=== PATIENT | male | born 1965 | race Two or more races ===

== ENCOUNTER 2020-10-12 13:19 | Outpatient (REF) | payer OTHER, SELFPAY | END 2020-10-12 13:20 | disposition home or self-care (01) | LOC: HO.LAB 13:19 | PROVIDERS: PCP Internal Medicine; Visit Provider Internal Medicine | DX: Z20.828 Contact with and (suspected) exposure to other viral communicable diseases (principal) | CPT/HCPCS: C9803; U0003 ==

== ENCOUNTER 2020-11-14 12:16 | Outpatient (REF) | payer MEDICAID, SELFPAY | END 2020-11-14 12:17 | disposition home or self-care (01) | LOC: HO.LAB 12:16 | PROVIDERS: PCP Internal Medicine; Visit Provider Internal Medicine | DX: Z20.822 Contact with and (suspected) exposure to COVID-19 (principal) | CPT/HCPCS: 36415; C9803; U0003 ==

== ENCOUNTER 2021-03-15 12:41 | Outpatient (REF) | payer MEDICAID, SELFPAY ==
--- NOTE | ~2021-03-15 | XR_ITS ---
EXAMINATION: XR HIP, LEFT CLINICAL INFORMATION: Left hip pain. COMPARISON: None. TECHNIQUE: 2 views of the left hip. FINDINGS: The left hip joint space is maintained normal. There is mild left alicia-acetabular spurring but no bony erosive changes or loose bodies. There is soft tissue ossification lateral to the greater trochanter, likely calcific bursitis. No fracture, lytic or sclerotic process seen. XR/XR hip LT min 2V IMPRESSION: Likely calcific bursitis adjacent to the greater trochanter. Mild periarticular spurring left hip joint. No acute fracture or lytic process.
== END 2021-03-15 12:42 | disposition home or self-care (01) ==
LOC: HO.HMGCX 12:41
PROVIDERS: PCP Internal Medicine; Visit Provider Internal Medicine
DX: M25.552 Pain in left hip (principal)
CPT/HCPCS: 73502

== ENCOUNTER 2021-05-05 22:11 | Emergency (ER) | payer MEDICAID, SELFPAY ==
--- NOTE | ~2021-05-05 | XR_ITS ---
EXAMINATION: XR TOES, RIGHT CLINICAL INFORMATION: Right great toe pain COMPARISON: None TECHNIQUE: 3 views of the right toes were obtained. FINDINGS: Lucency is seen through the shaft of the first digit distal phalanx. There is no fracture line visualized. The lucency is likely associated with the configuration of the tuft. Mild degenerative change at the first metatarsophalangeal joint with small osteophytes present. No osseous erosion. The soft tissues appear unremarkable. XR/XR toe RT min 2V IMPRESSION: No acute fracture is seen. Mild degenerative change of the first metatarsophalangeal joint.
--- NOTE | 2021-05-05 22:19 | PC.NURSE ---
awaiting rat farmer services to triage
[2021-05-05 22:28] VITALS: BP 157/77; PULSE 75; RESP 18; TEMP 37.2; O2SAT 100; BMI 29.0
--- NOTE | 2021-05-05 23:11 | ED.LOWEXIN ---
HPI - Extremity Injury (Lower) General Chief Complaint: Extremity Injury, Lower Stated Complaint: Toe injury Time Seen by Provider: 05/05/21 23:11 Source: patient Mode of arrival: ambulatory History of Present Illness HPI Narrative: 56-year-old diabetic, blind male who presents after having injured his right great toe when moving a refrigerator yesterday. As per daughter who is at bedside her father dropped a corner of the refrigerator on to his right great toenail. Patient has complaint of pain and states that it is throbbing . Related Data Previous Rx's Medication Instructions Recorded amoxicillin-pot clavulanate 1 tab PO Q12H 5 Days #10 tab 05/05/21 [Augmentin] Allergies Allergy/AdvReac Type Severity Reaction Status Date / Time No Known Allergies Allergy Verified 05/05/21 22:18 Review of Systems Review of Systems: Pertinent positives and negatives as stated in HPI 10 point review of systems otherwise negative. [facility] Past Medical History Source: nursing notes reviewed Medical History Blindness Diabetes Hernia Surgical History H/O eye surgery Social History Social History Advance Directives: No Advance Directives Information Provided: No Physical Exam Vital Signs: Vital Signs: Last Vital Signs Temp 99 F 05/05/21 22:28 Pulse 75 05/05/21 22:28 Resp 18 05/05/21 22:28 BP 157/77 H 05/05/21 22:28 Pulse Ox 100 05/05/21 22:28 Body Mass Index 29.0 VITAL SIGNS: Reviewed. GENERAL: Well developed, well nourished, in no acute distress. HEAD: Normocephalic/atraumatic EYES: PERRLA, EOMI OROPHARYNX: no oral lesions noted, posterior pharynx clear LUNGS: Normal breath sounds. No adventitious sounds or accessory muscle use. SpO2<100> CARDIOVASCULAR: Regular rate and rhythm without noted murmurs ABDOMEN: Soft, non-tender, non-distended with bowel sounds. RIGHT GREAT TOE: OBVIOUS SUBUNGUAL HEMATOMA NEUROLOGIC: Alert and oriented x 4. Course Course Course Narrative: 56-year-old male with traumatic injury to the right great toe and subsequent subungual hematoma that was relieved by nail trephination. patient was started on antibiotics with initial dose given here in the emergency room due to the fact that he is diabetic and instructed to follow-up with his primary care Provider. Procedures Nail Trephination Time out: No Location (toes): right Method of drainage: nail cautery Procedure successful: Yes Patient tolerated procedure: No Complications Discharge Plan Discharge Clinical Impression: Subungual hematoma Patient Disposition: Home, Self-Care Instructions: Subungual Hematoma (ED) Additional Instructions: 1. Reanude todos los medicamentos caseros seg?n lo prescrito. 2. Jamey un seguimiento con costa proveedor de atenci?n primaria en los pr?ximos 2-3 d?as para bel reevaluaci?n y un tratamiento ambulatorio adicional. 3. Recomiende el uso de Tylenol / ibuprofeno de venta sameera seg?n sea necesario para controlar el dolor. Regrese a la katie de emergencias si los s?ntomas empeoran. Prescriptions: New amoxicillin-pot clavulanate [Augmentin] 875-125 mg tablet 1 tab PO Q12H 5 Days Qty: 10 RF: 0 Referrals: Physician,Unknown [Primary Care Provider] - 2 days Print Language: Swedish
--- NOTE | 2021-05-05 23:47 | PC.NURSE ---
PT RIGHT LARGE TOE CAUTERIZE AT BEDSIDE BY DR CORREIA. THEN OVERED WITH BAND AID.
[2021-05-05] MEDS: Amoxicillin/Potassium Clav 875 MG TABLET PO (23:52)
== END 2021-05-06 00:15 | disposition home or self-care (01) ==
PROVIDERS: Emergency Provider Student in an Organized Health Care Education/Training Program
DX: S90.211A Contusion of right great toe with damage to nail, initial encounter (principal); E11.9 Type 2 diabetes mellitus without complications; H54.7 Unspecified visual loss; W20.8XXA Other cause of strike by thrown, projected or falling object, initial encounter; Y93.9 Activity, unspecified; Y92.9 Unspecified place or not applicable; Y99.9 Unspecified external cause status
CPT/HCPCS: 11740; 73660; 99283; 99284

== ENCOUNTER → 2021-07-30 11:47 | Outpatient (BNVA) | payer MEDICAID, SELFPAY | PROVIDERS: Visit Provider Nurse Practitioner Family ==

== ENCOUNTER 2021-07-30 13:23 | Outpatient (REF) | payer MEDICAID, SELFPAY | END 2021-07-30 13:24 | disposition home or self-care (01) | LOC: HO.LAB 13:23 | PROVIDERS: PCP Internal Medicine; Visit Provider Internal Medicine | DX: Z20.822 Contact with and (suspected) exposure to COVID-19 (principal); R13.10 Dysphagia, unspecified | CPT/HCPCS: 99202; C9803; U0003; U0005 ==

== ENCOUNTER 2021-08-24 09:44 | Outpatient (REF) | payer MEDICAID, SELFPAY ==
--- NOTE | ~2021-08-24 | FL_ITS ---
EXAMINATION: FL BARIUM SWALLOW CLINICAL INFORMATION: Dysphasia. COMPARISON: None TECHNIQUE: Barium swallow examination is performed using fluoroscopic evaluation in addition to multiple fluoroscopic spot views. The patient is imaged both upright and prone and using both thick and thin barium sulfate along with a half-inch diameter barium tablet. DLP: 37.298 mGy DAP: 7.476 Gycm2 Images: 61 FINDINGS: There is normal apposition of the vocal cords while saying E. There is normal elevation of the soft palate while saying candy. Patient swallowed thin and thick barium and 1 half-inch diameter barium tablet without difficulty. No nasopharyngeal reflux or tracheal aspiration identified. No region of nondistensibility is seen. No mucosal abnormalities appreciated. No hiatal hernia. No gastroesophageal reflux was elicited during the study. FL/FL barium swallow IMPRESSION: Normal esophagram.
== END 2021-08-24 09:45 | disposition home or self-care (01) ==
LOC: HO.XRAY 09:44
PROVIDERS: PCP Internal Medicine; Visit Provider Nurse Practitioner Family
DX: R13.10 Dysphagia, unspecified (principal)
CPT/HCPCS: 74220

== ENCOUNTER → 2021-10-09 11:34 | Outpatient (BNVA) | payer MEDICAID, SELFPAY | PROVIDERS: PCP Internal Medicine; Referring Provider Internal Medicine; Visit Provider Nurse Practitioner Family | DX: R13.10 Dysphagia, unspecified (principal) | CPT/HCPCS: 99212 ==

== ENCOUNTER 2022-05-27 14:45 | Outpatient (REF) | payer MEDICAID, SELFPAY ==
--- NOTE | ~2022-05-27 | XR_ITS ---
EXAMINATION: XR HIP, RIGHT CLINICAL INFORMATION: Shunt pain. History of gout COMPARISON: None TECHNIQUE: Two views of the right hip. FINDINGS: The right hip joint space is maintained normal. No visible acute fracture, dislocation or bony erosive changes seen. The soft tissues are normal. XR/XR hip RT min 2V IMPRESSION: Unremarkable right hip joint exam.
== END 2022-05-27 14:46 | disposition home or self-care (01) ==
LOC: HO.XRAY 14:45
PROVIDERS: Absent Provider Internal Medicine; PCP Internal Medicine; Visit Provider General Practice
DX: M25.551 Pain in right hip (principal)
CPT/HCPCS: 73502

== ENCOUNTER → 2022-10-09 11:25 | Outpatient (BNVA) | payer MEDICAID, SELFPAY | PROVIDERS: PCP Internal Medicine; Referring Provider Internal Medicine; Visit Provider Nurse Practitioner Family | DX: R13.12 Dysphagia, oropharyngeal phase (principal); E11.9 Type 2 diabetes mellitus without complications | CPT/HCPCS: 99212 ==

== ENCOUNTER 2022-12-14 10:27 | Outpatient (REF) | payer MEDICAID, SELFPAY ==
--- NOTE | ~2022-12-14 | XR_ITS ---
EXAMINATION: XR LUMBOSACRAL SPINE CLINICAL INFORMATION: Right-sided back pain COMPARISON: None TECHNIQUE: Three views of the lumbosacral spine. FINDINGS: There is mild curvature of the lower lumbar sacral spine to the left. Bone alignment is otherwise normal. No fracture or dislocation. Mild degenerative spondylosis at L1-L2, L2-L3 and L3. Disc spaces are normal. There is mild lower lumbar spine facet arthritis. There is evidence of atherosclerotic disease. XR/XR lumbar spine 2-3V IMPRESSION: Mild degenerative changes.
== END 2022-12-14 10:28 | disposition home or self-care (01) ==
LOC: HO.XRAY 10:27
PROVIDERS: PCP Internal Medicine; Visit Provider Family Medicine
DX: M54.50 Low back pain, unspecified (principal)
CPT/HCPCS: 72100

== ENCOUNTER 2023-01-12 09:33 | Emergency (ER) | payer MEDICAID, SELFPAY ==
--- NOTE | ~2023-01-12 | XR_ITS ---
EXAMINATION: XR CHEST CLINICAL INFORMATION: Cough with shortness of breath COMPARISON: None TECHNIQUE: PA view of the chest was obtained. FINDINGS: No significant abnormality is noted involving the heart, lungs, mediastinum, bony thorax or soft tissues. XR/XR chest 1V IMPRESSION: No acute disease.
[2023-01-12 09:37] VITALS: BP 146/79; PULSE 78; RESP 16; TEMP 35.8; O2SAT 99; BMI 27.4
[2023-01-12 10:00] VITALS: RESP 16
--- NOTE | 2023-01-12 10:10 | MHC.EDTECH ---
covid/flu swab collected and sent to lab
[2023-01-12 10:31] LABS: COVID-19 Test Negative (Negative); IDNOW Serial# 16C4AD1C; IDNOW Serial# BCCEAD1C; Influenza A Negative (Negative); Influenza B2 Negative (Negative)
--- NOTE | 2023-01-12 11:45 | ED_ITS ---
HPI - URI/Sore Throat General Chief Complaint: Upper Respiratory Symptoms Stated Complaint: Sinus pain Time Seen by Provider: 01/12/23 09:44 Source: patient Mode of arrival: ambulatory History of Present Illness HPI Narrative: 57-year-old male with past medical history of diabetes, hernia, blindness, presenting to the ED complaining of sinus congestion/rhinorrhea, sinus pain, dry cough, mild SOB x3 days. Denies fever, chills, ear pain, sore throat, chest pain, recent travel, sick contacts MD elicited complaint: cough, rhinorrhea and nasal congestion Onset (ago): day(s) Related Data Home Medications Medication Instructions Recorded Confirmed aspirin 81 mg tablet,delayed 81 mg PO DAILY 07/30/21 release atorvastatin 10 mg tablet 10 mg PO BEDTIME 07/30/21 dulaglutide 1.5 mg/0.5 mL 1.5 mg subcut QWEEK 07/30/21 subcutaneous pen injector (Trulicity) lisinopril 10 mg tablet 10 mg PO DAILY 07/30/21 metformin 500 mg tablet 500 mg PO BID 07/30/21 blood sugar diagnostic (Prodigy No #10 ea 10/09/22 Coding strips) insulin glargine 100 unit/mL (3 25 unit subcut BEDTIME 10/09/22 mL) subcutaneous pen (Lantus Solostar U-100 Insulin) lancets 28 gauge (FreeStyle #100 ea 10/09/22 Lancets) pen needle, diabetic 31 gauge x #1,200 ea 10/09/22 5/16 (BD Ultra-Fine Short Pen Needle) Previous Rx's Medication Instructions Recorded benzonatate 100 mg capsule 100 mg PO TID PRN cough #14 caps 01/12/23 cetirizine 10 mg capsule (Zyrtec) 10 mg PO DAILY PRN allergy 01/12/23 symptoms #14 caps fluticasone propionate 50 2 spray intranasal DAILY #16 grams 01/12/23 mcg/actuation nasal spray,suspension (Flonase Allergy Relief) Allergies Allergy/AdvReac Type Severity Reaction Status Date / Time No Known Allergies Allergy Verified 01/12/23 09:37 Review of Systems Review of Systems: Constitutional: No Fever, No Chills ENT/Mouth: No Ear Pain, + Nasal Congestion, + Sinus Pain, No Hoarseness, No sore throat, + Rhinorrhea, No Swallowing Difficulty Cardiovascular: No Chest Pain, + SOB Respiratory: + Cough, No Sputum, No Wheezing Gastrointestinal: No Nausea, No Vomiting, No Diarrhea, No Constipation, No Abdominal pain Genitourinary: No Dysuria, No Urinary Frequency, No Hematuria, No Flank Pain Musculoskeletal: No joint pain, No Myalgias, No Joint Swelling Skin: No Skin Lesions, No rash Neuro: No Weakness Yes all other systems are reviewed and are negative Constitutional: Constitutional: Reports as per [facility] Past Medical History Attestation statement: The following information was validated with the patient. Medical History Blindness Diabetes Hernia Surgical History H/O colonoscopy H/O eye surgery Hernia History of eye surgery Family History Family History Father Diabetic acetonemia Eye disease Mother Diabetic acetonemia Eye disease Sister Thyroid activity decreased Sister Thyroid cancer Social History Social History Alcohol intake: unknown Patient Tobacco Use Status: Former Tobacco user Smoked in Last 30 Days: No Use of substances other than those prescribed or required for medical reasons: Unknown Advance Directives: No Advance Directives Information Provided: No Physical Exam Vital Signs: Vital Signs: Last Vital Signs Temp 96.5 F L 01/12/23 09:37 Pulse 78 01/12/23 09:37 Resp 16 01/12/23 10:00 BP 146/79 H 01/12/23 09:37 Pulse Ox 99 01/12/23 09:37 O2 Del Method 01/12/23 09:37 BMI result Body Mass Index 27.4 Const: General: cooperative, healthy appearing and no acute distress Orientation/consciousness: patient oriented x3 Limitations: no limitations HEENT: Head: Yes normal to inspection and Yes atraumatic Ears: hearing grossly normal bilaterally, external ears normal, TM's normal bilaterally and mastoids normal General nose exam: Normal external nose present and Nasal discharge present Face and sinus: Yes normal facial exam and Yes Facial tenderness on exam of face and sinuses (+ maxillary sinuses) Mouth: Normal oral and palatal mucosa present Throat: Yes posterior oropharynx normal, Yes tonsils normal, Yes uvula midline, No peritonsillar mass, No uvula laterally displaced and No uvular edema Eyes: General: appearance normal, both eyes and all related structures EOM: EOMs intact bilaterally Neck: Neck: Yes normal visual inspection and Yes no meningeal signs Resp: Effort & Inspection: normal respiratory effort and no respiratory distress Auscultation: clear to auscultation bilaterally, no crackles, no rales, no rhonchi and no wheezes Cardio: Rate: regular rate Heart sounds: S1 normal heart sound present and S2 normal heart sound present GI: Inspection: Yes normal to inspection Palpation (GI): Soft to palpation, nontender, no guarding and not rigid Skin: Rashes: no rashes Wounds: no wounds Neuro: General: patient oriented x3, tone normal and no meningeal signs Gait exam (Neuro): Normal gait present Extrem: General: Yes normal to inspection, Yes no pedal edema and Yes no calf tenderness Course Course Course Narrative: -1145--COVID and influenza negative XR chest 1V IMPRESSION: No acute disease. ? Results discussed with patient including worrisome signs and symptoms and strict return precautions, and when to return to the emergency department. They verbalized understanding and feel safe for discharge at this time. Medical Decision Making Medical Decision Making [facility] Narrative: 57-year-old male with past medical history of diabetes, hernia, blindness, presenting to the ED complaining of sinus congestion/rhinorrhea, sinus pain, dry cough, mild SOB x3 days. On exam vital signs stable, NAD, nontoxic appearing, bilateral maxillary sinus tenderness noted, oropharynx WNL, lungs CTA. Concern for viral illness vs sinusitis vs bronchitis/pneumonia. No need for antibiotics at this time is likely viral etiology Plan: COVID-19/influenza testing, CXR, reassess Please refer to course for remaining clinical decision making, interpretation of labs/imaging results, and discussions with consultants and/or family members. Differential Diagnosis Differential Diagnoses: The differential diagnosis associated with the presentation includes As above Admission/Observation Consideration of admission/observation: Escalation of care including ad mission/observation considered Lab Data [facility] Lab Attestation statement: I reviewed the patient's lab results. Labs: Lab Results 01/12/23 01/12/23 Range/Units 10:08 10:08 COVID-19 (DEBBIE) Negative (Negative) COVID-19 Clin Com See Note Influenza Type A (CATIA) Negative (Negative) Influenza Type B (CATIA) Negative (Negative) Influenza A & B Note See Note Radiology Impression Discussion of test interpretation with radiology: I have reviewed the radiologist's reading. External Record Review External record reviewed: Inpatient record, Office record, Outpatient record, Prior outpatient labs, Prior outpatient radiology, Primary care record and Outside ED record Discharge Plan Discharge Clinical Impression: Upper respiratory infection Patient Disposition: Home, Self-Care Instructions: Upper Respiratory Infection (ED) Additional Instructions: Your x-rays unremarkable. He tested negative for COVID and the flu. Flonase as a nasal decongestant, take as needed Tessalon Perles for cough Zyrtec as an antihistamine Rest Stay hydrated If symptoms persist or worsen return to the ED Prescriptions: New benzonatate 100 mg capsule 100 mg PO TID PRN (Reason: cough) Qty: 14 0RF fluticasone propionate [Flonase Allergy Relief] 50 mcg/actuation spray,suspension 2 spray intranasal DAILY Qty: 16 0RF Rx Instructions: administer into each nostril Zyrtec 10 mg capsule 10 mg PO DAILY PRN (Reason: allergy symptoms) Qty: 14 0RF No Action lisinopril 10 mg tablet 10 mg PO DAILY metformin 500 mg tablet 500 mg PO BID atorvastatin 10 mg tablet 10 mg PO BEDTIME aspirin 81 mg tablet,delayed release (DR/EC) 81 mg PO DAILY Trulicity 1.5 mg/0.5 mL pen injector 1.5 mg subcut QWEEK insulin glargine [Lantus Solostar U-100 Insulin] 100 unit/mL (3 mL) insulin pen 25 unit subcut BEDTIME (DME) pen needle, diabetic [BD Ultra-Fine Short Pen Needle] 31 gauge x 5/16 needle See Rx Instructions .ROUTE DAILY Qty: 1200 Rx Instructions: As directed (DME) Prodigy No Coding Strip See Rx Instructions .ROUTE BID Qty: 10 Rx Instructions: As directed (DME) lancets [FreeStyle Lancets] 28 gauge misc See Rx Instructions .ROUTE BID Qty: 100 Rx Instructions: As directed Referrals: Gian Reyna MD [Primary Care Provider] - 5 days Interventions: ED Discharge Assessment Last Done: 01/12/23 12:08 Discharge Date/Time: 01/12/23 12:08
== END 2023-01-12 12:08 | disposition home or self-care (01) ==
PROVIDERS: Physician Assistant; Emergency Provider Student in an Organized Health Care Education/Training Program; PCP Internal Medicine
DX: J06.9 Acute upper respiratory infection, unspecified (principal); Z20.822 Contact with and (suspected) exposure to COVID-19; Z20.828 Contact with and (suspected) exposure to other viral communicable diseases; Z87.891 Personal history of nicotine dependence; Z79.899 Other long term (current) drug therapy
CPT/HCPCS: 71045; 87502; 87635; 99283; 99284

== ENCOUNTER → 2023-01-20 13:43 | Outpatient (BNVA) | payer MEDICAID, SELFPAY | PROVIDERS: PCP Internal Medicine; Visit Provider Nurse Practitioner Family | DX: R13.10 Dysphagia, unspecified (principal); Z12.11 Encounter for screening for malignant neoplasm of colon | CPT/HCPCS: 99212 ==

== ENCOUNTER → 2023-02-12 08:34 | Outpatient (REF) | payer MEDICAID, SELFPAY ==
--- NOTE | 2023-02-12 08:40 | CA_ITS ---
Transthoracic Echocardiogram Patient (Last, First, Middle): Kemar Farfan A Gender: Male Date of : 1965 Age: 57 Procedure Date: 02/12/2023 Procedure Type: Transthoracic Echocardiogram Location: OP Height: 167.64 cm Weight: 78.47 kg BSA: 1.88 m2 Heart Rate: bpm BP: 124 / 60 mmHg Home Health Physical Therapist: Referring MD: Gian Maradiaga MD National Recruiter: Kvng Aquino MD Symptoms: HEART MURMUR I35.8 Study Quality: Adequate ECG Rhythm: Sinus Conclusions: - 1. Normal LV ejection fraction with grade 1 diastolic dysfunction 2. Trace aortic regurgitation 3. Normal RV systolic pressure 4. No gross pericardial effusion Findings Left Ventricle Normal left ventricular size, thickness, and systolic function. The visually estimated ejection fraction is between 60-65%. Spectral Doppler is indicative of an impaired relaxation filling pattern. E/E prime ratio is <8, consistent with normal filling pressures. Evidence suggests grade I (mild) diastolic dysfunction.Peak GLS is -17.3%, within acceptable limits. Right Ventricle Normal right ventricular cavity size and systolic function. Atria The left atrium is likely dilated. There is lipomatous hypertrophy of the interatrial septum. There is no evidence of interatrial shunt. The right atrium is normal in size. Aortic Valve Normal aortic valve structure and function. There is no aortic valve stenosis. There is trace (trivial) aortic valve regurgitation. Mitral Valve Normal mitral valve structure and function. There is trace mitral valve regurgitation. There is no mitral valve stenosis. Pulmonic Valve The pulmonic valve is likely normal. Tricuspid Valve Normal tricuspid valve structure. There is trace tricuspid valve regurgitation. The right ventricular systolic pressure is normal. The right ventricular systolic pressure is 21 mmHg. Normal right atrial pressure. There is no evidence of pulmonary hypertension. Great Vessels All visible segments of the aorta are normal in size. The pulmonary artery was not well visualized. Venous The inferior vena cava is normal in size and collapses greater than 50% with inspiration. Pericardium/Pleural There is no evidence of pericardial effusion. Prior Study Comparison No prior study available for comparison. Measurements 2D Linear Measurements IVSd: 1.13 0.6-0.9/0.6-1.0 cm LVIDd: 4.90 3.9-5.3/4.2-5.9 cm LVIDd Index: 2.61 2.4-3.2/2.2-3.1 cm/m2 LVIDs: 3.27 2.0-3.6 cm LVPWd: 1.06 0.7-1.1 cm Ao Root: 3.60 2.1-3.5 cm LA Diam: 4.00 2.7-3.8/3.0-4.0 cm LAIDs Index: 2.13 1.5-2.3 cm/m2 LV Mass: 248.30 67-162/88-224 g LV Mass Index: 132.08 43-95/49-115 g/m2 LVOT Diam: 2.40 3.0+(-)1.3 cm 2D Systolic Function EF 4C: 59.70 >55% EF 2C: 59.60 >55% EF BiP: 59.60 >55% Mitral Valve MV Pk E: 0.62 MV PK A: 0.78 MV Decel Time: 245.00 E/A: 0.80 E'Lateral: 13.40 E'Medial: 7.62 E/E' Med: 8.10 E/E' Lat: 4.60 PHT: 72.00 MVA PHT: 3.06 Decel [place]: 2.52 Aortic Valve AoV Pk [place]: 1.48 AoV Mn [place]: 1.00 AoV VTI: 0.30 AoV Pk Grad: 9.00 Aov Mn Grad: 5.00 ISAURA Cont.VTI: 3.09 LVOT LVOT Pk [place]: 1.00 LVOT Mn [place]: 0.67 LVOT VTI: 0.20 LVOT Pk Grad: 4.00 LVOT Mn Grad: 2.00 LVOT Diam: 2.40 LVOT Area: 4.52 Diastolic Function MV Pk E: 0.62 MV Pk A: 0.78 E/A: 0.80 E'Medial: 7.62 E/E' Med: 8.10 E' Laterial: 13.40 E/E' Lat: 4.60 Right Ventricle TAPSE (mm): 31.00 Tricuspid Valve TR Pk [place]: 2.14 TR Pk Grad: 18.00 RA Press: 3.00 RVSP: 21.00 Great Vessels Aorta Ao Root-2D: 3.60 2.0-3.7 cm Ao Asc: 3.40 2.1-3.4 cm Pulmonary Valve PV Pk [place]: 1.22 Peak PV Grad: 6.00 Updated in Other Vendor System with Status of Final Kvng Aquino MD electronically signed on 02/12/2023 3:50:01 PM with status of Final
== END ==
LOC: HO.CARD 08:34
PROVIDERS: PCP Internal Medicine; Visit Provider Internal Medicine
DX: I35.8 Other nonrheumatic aortic valve disorders (principal)
CPT/HCPCS: 93306; 93356

== ENCOUNTER 2023-03-28 12:09 | Emergency (ER) | payer MEDICAID, SELFPAY ==
--- NOTE | ~2023-03-28 | XR_ITS ---
EXAMINATION: XR FOOT, RIGHT CLINICAL INFORMATION: Pain and swelling COMPARISON: None available. TECHNIQUE: AP, lateral, and oblique views of the right foot. FINDINGS: There is no visible acute fracture, dislocation or subluxation. The ankle mortise and subtalar joints are normal. There is a small calcaneal heel and retrocalcaneal enthesophytes. The soft tissues are normal. XR/XR foot RT 2V IMPRESSION: Small calcaneal and retrocalcaneal enthesophytes.
--- NOTE | 2023-03-28 12:17 | ED_ITS ---
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 He reports the pain came on slowly and has gotten worse recently. He had leftover naproxen from previous gout flares which he has been taking intermittently with only brief improvement. He denies any injury to the area. He denies any redness to the area. It is painful when he walks, he is using a cane. He denies any fever, chills, nausea, vomiting, abdominal pain. He is not on allopurinol. He thinks this is his 3rd gout flare. MD complaint: Right great toe pain Onset (ago): week(s) (2) Location: right and lower extremity Radiation: proximal Severity: moderate Severity scale (1-10): 7 Quality: aching Pain Consistency: constant Relieving factors: immobilization and rest Exacerbating factors: movement Associated symptoms: denies other symptoms Treatments prior to arrival: NSAID Related Data Home Medications Medication Instructions Recorded Confirmed aspirin 81 mg tablet,delayed 81 mg PO DAILY 07/30/21 release atorvastatin 10 mg tablet 10 mg PO BEDTIME 07/30/21 dulaglutide 1.5 mg/0.5 mL 1.5 mg subcut QWEEK 07/30/21 [facility] lisinopril 10 mg tablet 10 mg PO DAILY 07/30/21 metformin 500 mg tablet 500 mg PO BID 07/30/21 blood sugar diagnostic (Prodigy No #10 ea 10/09/22 Coding strips) insulin glargine 100 unit/mL (3 25 unit subcut BEDTIME 10/09/22 mL) subcutaneous pen (Lantus Solostar U-100 Insulin) lancets 28 gauge (FreeStyle #100 ea 10/09/22 Lancets) pen needle, diabetic 31 gauge x #1,200 ea 10/09/22 5/16 (BD Ultra-Fine Short Pen Needle) Previous Rx's Medication Instructions Recorded benzonatate 100 mg capsule 100 mg PO TID PRN cough #14 caps 01/12/23 cetirizine 10 mg capsule (Zyrtec) 10 mg PO DAILY PRN allergy 01/12/23 symptoms #14 caps fluticasone propionate 50 2 spray intranasal DAILY #16 grams 01/12/23 mcg/actuation nasal spray,suspension (Flonase Allergy Relief) prednisone 50 mg tablet 50 mg PO DAILY #5 tabs 03/28/23 Allergies Allergy/AdvReac Type Severity Reaction Status Date / Time No Known Allergies Allergy Verified 03/28/23 12:21 Review of Systems Review of Systems: Yes all other systems are reviewed and are negative [facility] Past Medical History Medical History Blindness Diabetes Hernia Surgical History H/O colonoscopy H/O eye surgery Hernia History of eye surgery Family History Family History Father Diabetic acetonemia Eye disease Mother Diabetic acetonemia Eye disease Sister Thyroid activity decreased Sister Thyroid cancer Social History Social History Alcohol intake: unknown Patient Tobacco Use Status: Former Tobacco user Advance Directives: No Advance Directives Information Provided: Yes Physical Exam ED Vital Signs: Vital Signs - 24 hr 03/28/23 12:18 Temperature 98.6 F Pulse Rate 76 Respiratory Rate 18 Blood Pressure 130/63 Pulse Oximetry 98 Oxygen Delivery Method Room Air BMI result Body Mass Index 27.6 Appearance: Alert. Oriented X3. No acute distress. HEENT: normal inspection CVS: Normal heart rate and rhythm. Pulses normal. Respiratory: No respiratory distress. Skin: Skin warm and dry. Normal skin color. Normal skin turgor. No rashes. Extremities: Right foot with mild swelling of the 1st MTP, area is warm but not erythematous. It is tender to touch. Pain with plantar flexion and dorsiflexion, extension and flexion of the great toe. no wounds Neuro: Oriented X 3. No motor deficit. No sensory deficit. Course Course Course Narrative: RME performed by Christiane Noyola PA-C. Patient is a 57 year old assigned male at presenting to the emergency department with right foot swelling and pain. Imaging ordered. Patient placed back in the waiting room pending room availability and results. Medications Administered Discontinued Medications Generic Name Dose Route Start Last Admin Trade Name Ricky PRN Reason Stop Dose Admin Ketorolac Tromethamine 30 mg 03/28/23 13:46 03/28/23 13:56 Ketorolac Tromethamine 30 Mg/Ml Vial IM 03/28/23 13:47 30 mg ONCE ONE Administration Prednisone 60 mg 03/28/23 13:34 03/28/23 13:39 Prednisone 20 Mg Tablet PO 03/28/23 13:35 60 mg ONCE ONE Administration Medical Decision Making Medical Decision Making MDM Narrative: 57-year-old male with history of gout, diabetes presents to the ER for evaluation of right great toe pain, worsening over the last 2 weeks. No trauma. The joint is warm and tender, no erythema. Doubt septic joint. X-ray is normal. Given location and history will treat for acute gout with steroids. Given duration colchicine less effective. He reported minimal relief with Naprosyn. His diabetes is well controlled with sugars 90-100. He is on insulin and can adjust his dosing for brief course of steroids. He will follow-up with his primary care doctor to further discuss other options like allopurinol for prevention. Low purine diet information provided. Patient is stable for discharge home. educational sign language interpreter used to discuss diagnosis, treatment, plan. Differential Diagnosis Differential Diagnoses: The differential diagnosis associated with the presentation includes gout, cellulitis, septic joint, abscess Independent Interpretation I performed an independent interpretation of an: Plain X-Ray Interpretation: Normal appearing right foot no fracture Radiology Impression Discussion of test interpretation with radiology: I have reviewed the radiologist's reading. Radiologist Impression: EXAMINATION: XR FOOT, RIGHT CLINICAL INFORMATION: Pain and swelling? COMPARISON: None available.? TECHNIQUE: AP, lateral, and oblique views of the right foot. FINDINGS: There is no visible acute fracture, dislocation or subluxation. The ankle mortise and subtalar joints are normal. There is a small calcaneal heel and retrocalcaneal enthesophytes. The soft tissues are normal. XR/XR foot RT 2V IMPRESSION: Small calcaneal and retrocalcaneal enthesophytes. Independent Historian Clinical information obtained from an independent historian. History obtained from or confirmed by: Spouse External Record Review External record reviewed: Office record, Outpatient record, Prior outpatient labs and Prior outpatient radiology Prescription Management I considered prescription management with: Pain Medication, Antibiotic and Other ( steroids) Chronic Conditions Patient?s care impacted by: Diabetes and Other ( gout) Critical Care Time Critical Care Time Critical Care Time: No Discharge Plan Discharge Clinical Impression: Gout Patient Disposition: Home, Self-Care Instructions: Low Purine Diet (ED), Gout (ED) Additional Instructions: Take the prescribed anti-inflammatory steroid medication as directed. Complete the entire course. You are due for your next dose tomorrow morning. Adjust her insulin as needed for elevated blood sugars associated with this medication. Follow-up with your primary care doctor as soon as possible [place] el medicamento esteroide antiinflamatorio recetado seg?n las indicaciones. Completa todo el curso. Debe recibir costa pr?xima dosis ma?ban por la ma?ban. Ajuste costa insulina seg?n sea necesario para los niveles elevados de az?car en la raquel asociados con ollie medicamento. Seguimiento con costa m?dico de atenci?n primaria sorenson pronto herve sea posible Prescriptions: New prednisone 50 mg tablet 50 mg PO DAILY Qty: 5 0RF No Action benzonatate 100 mg capsule 100 mg PO TID PRN (Reason: cough) Qty: 14 0RF fluticasone propionate [Flonase Allergy Relief] 50 mcg/actuation spray,suspension 2 spray intranasal DAILY Qty: 16 0RF Rx Instructions: administer into each nostril Zyrtec 10 mg capsule 10 mg PO DAILY PRN (Reason: allergy symptoms) Qty: 14 0RF lisinopril 10 mg tablet 10 mg PO DAILY metformin 500 mg tablet 500 mg PO BID atorvastatin 10 mg tablet 10 mg PO BEDTIME aspirin 81 mg tablet,delayed release (DR/EC) 81 mg PO DAILY Trulicity 1.5 mg/0.5 mL pen injector 1.5 mg subcut QWEEK insulin glargine [Lantus Solostar U-100 Insulin] 100 unit/mL (3 mL) insulin pen 25 unit subcut BEDTIME (DME) pen needle, diabetic [BD Ultra-Fine Short Pen Needle] 31 gauge x 5/16 needle See Rx Instructions .ROUTE DAILY Qty: 1200 Rx Instructions: As directed (DME) Prodigy No Coding Strip See Rx Instructions .ROUTE BID Qty: 10 Rx Instructions: As directed (DME) lancets [FreeStyle Lancets] 28 gauge misc See Rx Instructions .ROUTE BID Qty: 100 Rx Instructions: As directed Referrals: Gian Reyna MD [Primary Care Provider] - Interventions: ED Discharge Assessment Last Done: 03/28/23 14:34 Discharge Date/Time: 03/28/23 14:34 Print Language: Belarusian
[2023-03-28 12:18] VITALS: BP 130/63; PULSE 76; RESP 18; TEMP 37; O2SAT 98; BMI 27.6
[2023-03-28] MEDS: predniSONE 20 MG TABLET 60 MG PO (13:39)
[2023-03-28] MEDS: Ketorolac Tromethamine 30 MG/ML VIAL IM (13:56)
== END 2023-03-28 14:34 | disposition home or self-care (01) ==
PROVIDERS: Emergency Provider Emergency Medicine; PCP Internal Medicine
DX: M10.9 Gout, unspecified (principal); M79.674 Pain in right toe(s); E11.9 Type 2 diabetes mellitus without complications; Z79.82 Long term (current) use of aspirin; Z79.02 Long term (current) use of antithrombotics/antiplatelets; Z79.899 Other long term (current) drug therapy; Z79.4 Long term (current) use of insulin
CPT/HCPCS: 73620; 96372; 99283; 99284; J1885

== ENCOUNTER 2023-05-26 10:21 | Outpatient (REF) | payer MEDICAID, SELFPAY ==
--- NOTE | ~2023-05-26 | XR_ITS ---
EXAMINATION: XR KNEE, RIGHT CLINICAL INFORMATION: Pain COMPARISON: None available. TECHNIQUE: Three views of the right knee. FINDINGS: No acute visible fracture or dislocation. Mild narrowing of the medial femorotibial compartment. A fabella is noted in the posterior compartment. Slight periarticular ossified along the superior pole of the patella. Joint spaces and alignment are otherwise maintained. No large knee joint effusion. Soft tissues are unremarkable. Atherosclerotic calcifications are visualized. XR/XR knee RT 3V IMPRESSION: 1. No acute visible fracture or dislocation. 2. Mild multicompartment degenerative changes.
== END 2023-05-26 10:22 | disposition home or self-care (01) ==
LOC: HO.HHCX 10:21
PROVIDERS: Visit Provider Family Medicine
DX: M25.561 Pain in right knee (principal); M10.9 Gout, unspecified
CPT/HCPCS: 36415; 73562; 84550; 85025; 85652; 86140

== ENCOUNTER 2023-05-26 10:48 | Outpatient (REF) | payer MEDICAID, SELFPAY ==
[2023-05-26 13:17] LABS: MANUAL DIFF FLAG NO
[2023-05-26 13:50] LABS: Basophils Absolute Auto 0.1 X10*3/uL (0.0-0.2); Basophils Percent Auto 0.7 % (0-2); Eosinophils Absolute Auto 0.1 X10*3/uL (0.0-0.4); Eosinophils Percent Auto 0.7 % (0-4); Hemoglobin 12.5 g/dl (14.0-18.0); Imm Gran Abs Auto 0.02 X10*3/uL (0.00-0.03); Imm Gran Pct Auto 0.3 % (0.0-0.4); Lymphocytes Absolute Auto 1.4 X10*3/uL (1.2-4.9); Lymphocytes Percent Auto 18.5 % (20-40); Mean Corpuscular HGB Conc 32.9 g/dl (31.0-36.0); Mean Corpuscular Hemoglobin 31.4 pg (27.0-33.0); Mean Corpuscular Volume 95.5 fL (80.0-98.0); Mean Platelet Volume 10.4 fL (9.4-12.4); Monocytes Absolute Auto 0.7 X10*3/uL (0.1-1.2); Monocytes Percent Auto 8.5 % (2-11); Neutrophils Absolute Auto 5.5 x10*3/uL (2.0-8.3); Neutrophils Percent Auto 71.3 % (45-73); Platelet Count 244 X10*3/uL (160-400); Red Blood Count 3.98 X10*6/uL (4.60-5.80); Red Cell Distribution Width 12.7 % (11.0-16.0); White Blood Count 7.7 X10*3/uL (4.8-10.8)
[2023-05-26 14:08] LABS: C Reactive Protein 2.52 mg/dL (< or = 0.50); Uric Acid 8.1 mg/dL (3.4-7.0)
[2023-05-26 14:53] LABS: Erythrocyte Sedimentation Rate 10 MM/HR (0-15)
== END 2023-05-26 10:49 | disposition home or self-care (01) ==
LOC: HO.HHCL 10:48
PROVIDERS: Visit Provider Family Medicine
DX: M25.561 Pain in right knee (principal); M10.9 Gout, unspecified
CPT/HCPCS: 36415; 84550; 85025; 85652; 86140

== ENCOUNTER 2023-07-08 09:43 | Outpatient (AMB) | payer MEDICAID, SELFPAY ==
--- NOTE | 2023-07-08 09:47 | MHC.OFFVIS ---
Intake Vital Signs 07/08/23 10:03 07/08/23 10:10 Height 5 ft 6 in 5 ft 6 in Weight 177 lb 6 oz 177 lb 6 oz BMI 28.6 28.6 BP 134/68 139/65 Blood Pressure Location Lt brachial Lt brachial Position Sitting Sitting Pulse 75 75 Intake Visit Reasons: RIH Intake Note: Patient is seen in office for evaluation and treatment of a right inguinal hernia. Patient c/o: feels a lump on the bilateral groin, had them repair 35 yrs ago in [place], onset one half months ago, increase/decrease in size, denies nausea, vomit, diarrhea, constipation, no pain Doctor Of Podiatry Required: No Accompanied by: Family/Other Allergies No Known Allergies Allergy (Verified 07/08/23 10:05) Medication List - Last Reconciled 07/08/23 by Red Ramirez MD allopurinol 300 mg PO DAILY aspirin 81 mg PO DAILY atorvastatin 10 mg PO BEDTIME bisacodyl (Dulcolax (bisacodyl)) 20 mg (4 x 5 mg) PO ONCE 1 day dulaglutide (Trulicity) mg subcut insulin glargine (Lantus Solostar U-100 Insulin) 25 units subcut BEDTIME lancets (FreeStyle Lancets) As directed lisinopril 10 mg PO DAILY metformin 500 mg PO BID pen needle, diabetic (BD Ultra-Fine Short Pen Needle) As directed polyethylene glycol 3350 (Miralax) 238 grams PO ONCE 1 day HPI HPI Comments History of Present Illness Details 58-year-old male patient presenting with complaints of bilateral lumps in the groin. He reports a previous hernia repair approximately 35 years ago possibly with mesh performed in [place]. He was well until approximately 1.5 months ago when he developed mild discomfort and swelling in the bilateral groins. He reports an occasional increase and decrease in size of the lump but denies pain, nausea, vomiting, fever, chills, diarrhea or constipation. He feels he has bilateral recurrent inguinal hernias. [facility] Medical History Blindness Diabetes Hernia Surgical History H/O colonoscopy H/O eye surgery History of bilateral inguinal hernia repair History of eye surgery Family History Father Diabetic acetonemia Eye disease Mother Diabetic acetonemia Eye disease Sister Thyroid activity decreased Sister Thyroid cancer Social History Alcohol intake: unknown Patient Tobacco Use Status: Former Tobacco user Review of Systems Const All systems reviewed & are unremarkable except as noted in HPI and below Denies chills, Denies fever(s), Denies headache(s), Denies poor appetite and Denies weakness Eyes Details: Blind ENT Denies headache(s) Card Denies chest pain, Denies irregular heart rhythm, Denies palpitations and Denies dyspnea Resp Denies cough, Denies excessive phlegm production and Denies dyspnea GI Reports as per HPI, Denies abdominal pain, Denies bloating, Denies change in bowel habits, Denies constipation, Denies heartburn, Denies diarrhea, Denies nausea and Denies vomiting Denies difficulty urinating and Denies urinary frequency Musc Denies back pain, Denies muscle weakness and Denies numbness Skin/Breast Denies changing lesions and Denies unusual bruising Neuro Denies headache(s), Denies numbness, Denies paresthesias and Denies weakness Psych Denies anxiety and Denies depression Endo Denies palpitations Patricio/Lymph Denies lymphadenopathy Physical Exam Vital Signs: Last Vital Signs Pulse 75 07/08/23 10:10 BP 139/65 07/08/23 10:10 BMI result Body Mass Index 28.6 Const General: cooperative and no acute distress Nutritional Appearance: well nourished Orientation/consciousness: patient oriented x3 Limitations: no limitations HEENT Head: Yes normocephalic and Yes atraumatic Ears: hearing grossly normal bilaterally Resp Effort & Inspection: normal respiratory effort, no audible wheezes, no cough and no respiratory distress Cardio Jugular venous distension: no JVD GI Other: Examination in the standing position with Valsalva maneuvers elicit some tenderness in the bilateral groins but no definite hernias appreciated to my examination. Well-healed bilateral inguinal incisions are identified. Inspection: Yes normal to inspection Palpation (GI): Soft to palpation, nontender, no guarding and not rigid Skin Other: Warm, dry, no rash Neuro General: patient oriented x3 Extrem General: Yes no clubbing, cyanosis or edema Assessment & Plan Assessment & Plan (1) Recurrent bilateral inguinal hernia: Code(s): K40.21 - Bilateral inguinal hernia, without obstruction or gangrene, recurrent Plan 58-year-old male patient with a previous history of bilateral inguinal hernia repairs performed approximately 35 years ago in [place] now presenting with a 1.5 month history of swelling in the bilateral groins once again suggestive of recurrent hernia. A my examination however unable to definitely identify bilateral inguinal hernias. I therefore recommended further workup with CT pelvis. He will follow-up after the study to review the results. Orders: Orders CT pelvis w IV con Today K40.21 - Bilateral inguinal hernia, without obstruction or gangrene, recurrent Coding Level of Care Code New Pt Level 4 (14580) Diagnoses Recurrent bilateral inguinal hernia K40.21
[2023-07-08 10:03] VITALS: BP 134/68; PULSE 75; BMI 28.6
[2023-07-08 10:10] VITALS: BP 139/65; PULSE 75; BMI 28.6
== END 2023-07-08 10:21 | disposition home or self-care (01) ==
PROVIDERS: PCP Internal Medicine; Referring Provider Internal Medicine; Visit Provider Surgery
DX: K40.21 Bilateral inguinal hernia, without obstruction or gangrene, recurrent (principal)
CPT/HCPCS: 99204

== ENCOUNTER → 2023-07-08 09:43 | Outpatient (BNVA) | payer MEDICAID, SELFPAY | PROVIDERS: PCP Internal Medicine; Referring Provider Internal Medicine; Visit Provider Surgery ==

== ENCOUNTER 2023-07-21 09:15 | Outpatient (REF) | payer MEDICAID, SELFPAY ==
[2023-07-21 10:40] LABS: Blood Urea Nitrogen 27 mg/dL (9-16); Estimated Glomerular Filt Rate > 60
== END 2023-07-21 09:16 | disposition home or self-care (01) ==
LOC: HO.LAB 09:15
PROVIDERS: PCP Internal Medicine; Visit Provider Surgery
DX: K40.21 Bilateral inguinal hernia, without obstruction or gangrene, recurrent (principal)
CPT/HCPCS: 36415; 82565; 84520

== ENCOUNTER 2023-08-07 08:45 | Outpatient (REF) | payer MEDICAID, SELFPAY | END 2023-08-07 08:46 | disposition home or self-care (01) | LOC: HO.CT 08:45 | PROVIDERS: PCP Internal Medicine; Visit Provider Surgery | DX: K40.21 Bilateral inguinal hernia, without obstruction or gangrene, recurrent (principal) | CPT/HCPCS: 72193; Q9967 ==

== ENCOUNTER 2023-08-28 10:05 | Outpatient (AMB) | payer MEDICAID, SELFPAY ==
[2023-08-28 10:31] VITALS: BP 110/70; BMI 28.4
--- NOTE | 2023-08-28 10:31 | MHC.OFFVIS ---
Intake Vital Signs 08/28/23 10:31 Height 5 ft 6 in Weight 176 lb BMI 28.4 BP 110/70 Blood Pressure Location Lt brachial Position Sitting Intake Visit Reasons: CT scan results, following b/l inguinal hernias Intake Note: Patient is seen in office for CT scan results, following bilateral inguinal hernias. 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 He reports a previous hernia repair approximately 35 years ago possibly with mesh performed in [place]. He was well until approximately 1.5 months ago when he developed mild discomfort and swelling in the bilateral groins. He reports an occasional increase and decrease in size of the lump but denies pain, nausea, vomiting, fever, chills, diarrhea or constipation. He feels he has bilateral recurrent inguinal hernias. On his previous visit on 07/08/2023, mild discomfort was elicited with palpation of the bilateral groins right greater than left however no definite hernia was identified. The decision was made to request a CT of the pelvis. This was performed on 08/07/2023. The CT did reveal a fat containing recurrent bilateral inguinal hernia, right greater than left. No bowel was noted within the hernia contents. He returns today to review the CT results. Since his last visit he denies any new symptoms and generally feels well. [facility] Medical History Hernia Blindness Diabetes Surgical History History of bilateral inguinal hernia repair H/O colonoscopy History of eye surgery H/O eye surgery Family History Father Diabetic acetonemia Eye disease Mother Diabetic acetonemia Eye disease Sister Thyroid activity decreased Sister Thyroid cancer Social History Alcohol intake: unknown Patient Tobacco Use Status: Former Tobacco user Review of Systems Const All systems reviewed & are unremarkable except as noted in HPI and below Denies chills, Denies fever(s), Denies headache(s), Denies poor appetite and Denies weakness Eyes Details: Blind ENT Denies headache(s) Card Denies chest pain, Denies irregular heart rhythm, Denies palpitations and Denies dyspnea Resp Denies cough, Denies excessive phlegm production and Denies dyspnea GI Reports as per HPI, Denies abdominal pain, Denies bloating, Denies change in bowel habits, Denies constipation, Denies heartburn, Denies diarrhea, Denies nausea and Denies vomiting Denies difficulty urinating and Denies urinary frequency Musc Denies back pain, Denies muscle weakness and Denies numbness Skin/Breast Denies changing lesions and Denies unusual bruising Neuro Denies headache(s), Denies numbness, Denies paresthesias and Denies weakness Psych Denies anxiety and Denies depression Endo Denies palpitations Patricio/Lymph Denies lymphadenopathy Physical Exam Vital Signs: Last Vital Signs BP 110/70 08/28/23 10:31 BMI result Body Mass Index 28.4 Const General: cooperative and no acute distress Nutritional Appearance: well nourished Orientation/consciousness: patient oriented x3 Limitations: no limitations HEENT Head: Yes normocephalic and Yes atraumatic Ears: hearing grossly normal bilaterally Resp Effort & Inspection: normal respiratory effort, no audible wheezes, no cough and no respiratory distress Cardio Jugular venous distension: no JVD GI Other: Exam deferred Inspection: Yes normal to inspection Palpation (GI): Soft to palpation, nontender, no guarding and not rigid Skin Other: Warm, dry, no rash Neuro General: patient oriented x3 Extrem General: Yes no clubbing, cyanosis or edema Assessment & Plan Assessment & Plan (1) Recurrent bilateral inguinal hernia: Code(s): K40.21 - Bilateral inguinal hernia, without obstruction or gangrene, recurrent Qualifiers: Obstruction and gangrene presence: without obstruction or gangrene Qualified Code(s): K40.21 - Bilateral inguinal hernia, without obstruction or gangrene, recurrent Plan 58-year-old male patient presenting with mild discomfort in the bilateral groins with a previous history of bilateral inguinal hernia repairs approximately 35 years prior. On examination no definite hernia was identified however by CT fat containing recurrent right inguinal hernia is identified. These are quite small and do not contain bowel. I reviewed the images with the patient and discussed his options including repair with mesh of the bilateral inguinal hernias verses continued observation if the symptoms are mild. After discussion of the procedure, risks and alternatives, he decided to avoid surgery at this time. He is welcome to call should symptoms worsen for re-evaluation and possible repair. He expressed understanding and agrees with the plan. Coding Level of Care Code Est Pt Level 3 (41018) Diagnoses Bilateral recurrent inguinal hernia without obstruction or gangrene K40.21 Obstruction and gangrene presence: without obstruction or gangrene
== END 2023-08-28 10:44 | disposition home or self-care (01) ==
PROVIDERS: PCP Internal Medicine; Visit Provider Surgery
DX: K40.21 Bilateral inguinal hernia, without obstruction or gangrene, recurrent (principal)
CPT/HCPCS: 99214

== ENCOUNTER → 2023-08-28 10:05 | Outpatient (BNVA) | payer MEDICAID, SELFPAY | PROVIDERS: PCP Internal Medicine; Visit Provider Surgery | DX: K40.21 Bilateral inguinal hernia, without obstruction or gangrene, recurrent (principal) | CPT/HCPCS: 99212 ==

== ENCOUNTER 2023-09-30 07:31 | Day surgery (SDC) | payer MEDICAID, SELFPAY ==
[2023-09-24 15:08] VITALS: BMI 28.4
--- NOTE | 2023-09-29 09:04 | HO.ANESPROP2 ---
Documented by User: Kath Peres NP 09/29/23 09:05 HPI - Anesthesia Eval Consult details Narrative: 58yo M for Upper Endoscopy and Colonoscopy Anesthesia Pre-Procedure Meds Is the patient on any of the following meds?: Dulaglutide (Trulicity) PMFSH Active Problems Active Problems: All Active Problems (Updated 09/24/23 @ 14:57 by Yumiko Baen RN) Recurrent bilateral inguinal hernia (Acute) Past Medical History Medical History Gout Hernia Diabetes Family History Family History Father Diabetic acetonemia Eye disease Mother Diabetic acetonemia Eye disease Sister Thyroid activity decreased Sister Thyroid cancer Surgical History Surgical History History of bilateral inguinal hernia repair H/O colonoscopy History of eye surgery Social History Alcohol intake: unknown Patient Tobacco Use Status: Former Tobacco user Have you been hit, kicked, punched, or otherwise hurt by someone within the past year? If so, by whom?: No Are you DNR?: No Advance Directives: No Advance Directives Information Provided: Yes Recently lost weight without trying: No Eating poorly because of decreased appetite: No Nutrition Risks: No Nutritional Risk Poor oral hygiene: No Meds Allergies Allergy/AdvReac Type Severity Reaction Status Date / Time No Known Allergies Allergy Verified 08/28/23 10:33 Home Medications Medication Instructions Recorded Confirmed Last Taken Type aspirin 81 mg tablet,delayed 81 mg PO DAILY 07/30/21 09/24/23 Unknown History release atorvastatin 10 mg tablet 10 mg PO BEDTIME 07/30/21 09/24/23 Unknown History lisinopril 10 mg tablet 10 mg PO DAILY 07/30/21 09/24/23 Unknown History metformin 500 mg tablet 500 mg PO BID 07/30/21 09/24/23 Unknown History insulin glargine 100 unit/mL (3 25 unit subcut BEDTIME 10/09/22 09/24/23 Unknown History mL) subcutaneous pen (Lantus Solostar U-100 Insulin) lancets 28 gauge (FreeStyle #100 ea 10/09/22 07/08/23 Unknown History Lancets) pen needle, diabetic 31 gauge x #1,200 ea 10/09/22 07/08/23 Unknown History 03/18 (BD Ultra-Fine Short Pen Needle) allopurinol 300 mg tablet 300 mg PO DAILY 07/08/23 09/24/23 Unknown History dulaglutide 3 mg/0.5 mL 3 mg subcut QWEEK 07/08/23 09/24/23 Unknown History subcutaneous pen injector (Trulicity) Exam Height,Weight and Vital Signs: Height 5 ft 6 in Weight 79.832 kg Pertinent Lab Results Pertinent Lab Results: Laboratory Tests 05/26/23 07/21/23 10:54 09:37 WBC 7.7 Hgb 12.5 L Hct 38.0 L Plt Count 244 BUN 27 H Creatinine 1.14 Assessment and Plan Assessment Anesthesia Assessment: Chart Reviewed Documented by User: Mitch Nathan MD 09/30/23 08:54 HPI - Anesthesia Eval Anesthesia Pre-Procedure Meds If Yes to any meds - educate patient: Pt education - increased risk of aspiration PMFSH Past Medical History Medical History Gout Hernia Diabetes Family History Family History Father Diabetic acetonemia Eye disease Mother Diabetic acetonemia Eye disease Sister Thyroid activity decreased Sister Thyroid cancer Family history of problems with anesthesia: No Surgical History Surgical History History of bilateral inguinal hernia repair H/O colonoscopy History of eye surgery History of Problems with Anesthesia: No Social History Alcohol intake: unknown Patient Tobacco Use Status: Former Tobacco user Have you been hit, kicked, punched, or otherwise hurt by someone within the past year? If so, by whom?: No Are you DNR?: No Advance Directives: No Advance Directives Information Provided: Yes Recently lost weight without trying: No Eating poorly because of decreased appetite: No Nutrition Risks: No Nutritional Risk Poor oral hygiene: No Meds Allergies Allergy/AdvReac Type Severity Reaction Status Date / Time No Known Allergies Allergy Verified 08/28/23 10:33 Home Medications Medication Instructions Recorded Confirmed Last Taken Type aspirin 81 mg tablet,delayed 81 mg PO DAILY 07/30/21 09/24/23 Unknown History release atorvastatin 10 mg tablet 10 mg PO BEDTIME 07/30/21 09/24/23 Unknown History lisinopril 10 mg tablet 10 mg PO DAILY 07/30/21 09/24/23 Unknown History metformin 500 mg tablet 500 mg PO BID 07/30/21 09/24/23 Unknown History insulin glargine 100 unit/mL (3 25 unit subcut BEDTIME 10/09/22 09/24/23 Unknown History mL) subcutaneous pen (Lantus Solostar U-100 Insulin) lancets 28 gauge (FreeStyle #100 ea 10/09/22 07/08/23 Unknown History Lancets) pen needle, diabetic 31 gauge x #1,200 ea 10/09/22 07/08/23 Unknown History 5/16 (BD Ultra-Fine Short Pen Needle) allopurinol 300 mg tablet 300 mg PO DAILY 07/08/23 09/24/23 Unknown History dulaglutide 3 mg/0.5 mL 3 mg subcut QWEEK 07/08/23 09/24/23 Unknown History subcutaneous pen injector (Trulicity) Exam Airway Mallampati Class: II TM Dist: >3cm Neck ROM: Full Assessment and Plan Assessment Anesthesia Assessment: Anesthesia Plan Discussed Final Anesthetic Review Family History of Problems with Anesthesia: No History of Problems with Anesthesia: No NPO: Yes ASA Class: III Final Preanesthetic Review: No Changes in Pt Med Stat, Meds/Allgs Chart Reviewed, Consent Obtained/Reviewed and Anes Risks/Benef Reviewed Patient Risk: Intermediate Procedure Risk: Low Anesthetic Plan Anesthetic Plan: MAC: Disposition: Standard PACU
--- NOTE | 2023-09-30 08:41 | MHC.SHP ---
Pre-Procedural Eval Section A Date of Service: 09/30/23 Section B Chief Complaint: GERD, Encounter for screening for malignant ne[place]la Relevant Family History (Specify if Yes): No Relevant Social History: None Present Medications: see Short Stay Collaborative assessment Medical History: Significant History (Gout Hernia Diabetes) History of Previous Operations: Relevant previous surgery/procedure and date(s) (colonsocopy) Allergies: Allergies Allergy/AdvReac Type Severity Reaction Status Date / Time No Known Allergies Allergy Verified 08/28/23 10:33 Review of Systems Sugical H&P ROS: Negative: Constitution, Cardiovascular, Respiratory, Neurological, Psychiatric, Hem-Onc, Allergic/Immunologic, Gastrointestinal, Genitourinary, Musculoskeletal, Integumentary, Endocrine and Eyes/Ears/Nose/Throat Exam Surgical H&P Exam: Normal: HEENT, Normal: Heart, Normal: Lungs, Normal: Extremities, Normal: Abdomen and Normal: Skin and Significant Findings: Neurological (blind) Plan Diagnosis/Plan: Unchanged I have reviewed the history and physical and performed a pertinent physical examination on my patient. No changes have occurred unless specified. Time Spent With Patient Time: Total time managing care of this patient today ____ minutes.
[2023-09-30 08:42] LABS: Glucose, Whole Blood 153 mg/dL (60-115)
[2023-09-30 08:45] VITALS: BP 140/80; PULSE 70; RESP 18; TEMP 36.7; O2SAT 97
[2023-09-30] MEDS: Lactated Ringers 1,000 ML 100 ML IVCONT (08:55)
--- NOTE | 2023-09-30 08:56 | W.PM.OPN ---
Operative Note Operative Note Date of Service: 09/30/23 Narrative: Operative Information Procedure Description: EGD, Colonoscopy Indication: dysphagia, screening colonoscopy Anesthesia: MAC FLEXIBLE TRANSORAL UPPER GASTROINTESTINAL ENDOSCOPY AND COLONOSCOPY PROCEDURE NOTE UPPER ENDOSCOPY Consent: Indications for the procedure and potential complications of bleeding, perforation, reaction to medications and missed diagnosis were discussed with the patient and informed consent was obtained. Instrument: Olympus GIF H 190 J mid size upper endoscope Monitoring: Vital signs and clinical assessment, continuous EKG monitoring, Pulse oximetry, Carbon Dioxide monitoring and blood pressure monitoring were done throughout the procedure. Procedure: The patient was placed in the left lateral decubitis position and pre-procedure medications were administered and a bite block was placed. The endoscope was inserted into the mouth and advanced under direct vision to the third part of duodenum. A careful inspection was made as the upper endoscope was withdrawn including a retroflexed examination of the proximal stomach; Findings and interventions are described below. Findings: Larynx:normal Esophagus: GE junction at 40 cm, diaphragm hiatus at 40 cm, samll erosion noted at GEJ, and some mild esophagitis, bx taken from GEJ, distal and proximal esophagus Stomach: Patchy erythema and erosions in the antrum. Biopsies were obtained. Grade 2 flap valve on retroflexed examination of the cardia. Duodenum: Mild duodenitis Intervention: Biopsies as noted above COLONOSCOPY Instrument: Olympus variable stiffness pediatric scope 190L Colonoscopy Monitoring: Vital signs and clinical assessment, continuous EKG monitoring, Pulse oximetry, Carbon Dioxide monitoring and blood pressure monitoring were done throughout the procedure. Colon withdrawal time was 10 minutes. Procedure: The patient was placed in the left lateral decubitis position and pre-procedure medications were administered. After a digital rectal examination of the ano-rectum, the video colonoscope was inserted into the rectum and advanced through the colon to the cecum/TI. The colonoscope was slowly withdrawn in a retrograde panoramic fashion and the colon mucosa was carefully examined including a retroflexed view of the rectum. Findings and interventions are described below. Procedure Difficulty: easy Findings: Terminal Ileum-normal Cecum: x 3 polypois lesions 4-5 mm removed with cold forceps Ascending Colon: normal Transverse Colon -normal Descending Colon:normal Sigmoid Colon: moderate diverticulosis Rectum: Retroflexion with medium sized internal hemorrhoids, grade I Anorectum - normal Colon preparation: [place] Bowel Preparation Scale Right colon; 2 Transverse colon: 2 Left colon; 2 (0 = Unprepared colon segment with mucosa not seen due to solid stool that cannot be cleared. 1 = Portion of mucosa of the colon segment seen, but other areas of the colon segment not well seen due to staining, residual stool and/or opaque liquid. 2 = Minor amount of residual staining, small fragments of stool and/or opaque liquid, but mucosa of colon segment seen well. 3 = Entire mucosa of colon segment seen well with no residual staining, small fragments of stool or opaque liquid) Impression and Post Procedure Diagnosis: Endoscopy Findings: erosive esophagitis erosive gastritis Colonoscopy Findings: polyps internal hemorrhoids diverticular disease Plan: Await Pathology results Repeat Colonoscopy in 5-7 years if adenomatous polyps, 10 yrs if benign tissue or earlier if clinically indicated High fiber diet leaflet avoid straining at stool, epsom salts and sitz bath, anusol supps or cream if H pylori pos then treat Above findings were reviewed with the patient and relevant handouts were provided if indicated.
[2023-09-30 09:34] VITALS: BP 92/56; PULSE 63; RESP 16; TEMP 36.3; O2SAT 94
[2023-09-30 09:49] VITALS: BP 110/67; PULSE 68; RESP 16; O2SAT 95
[2023-09-30 10:04] VITALS: BP 114/74; PULSE 61; RESP 16; TEMP 36.8; O2SAT 96
== END 2023-09-30 10:48 | disposition home or self-care (01) ==
PROVIDERS: PCP Internal Medicine; Visit Provider Internal Medicine Gastroenterology
PROC: (CPT 45380; principal; 2023-09-30 09:20)
DX: Z12.11 Encounter for screening for malignant neoplasm of colon (principal); D12.0 Benign neoplasm of cecum; K57.30 Diverticulosis of large intestine without perforation or abscess without bleeding; K64.0 First degree hemorrhoids; R13.10 Dysphagia, unspecified; K29.50 Unspecified chronic gastritis without bleeding; K20.80 Other esophagitis without bleeding; K29.80 Duodenitis without bleeding; K44.9 Diaphragmatic hernia without obstruction or gangrene; M10.9 Gout, unspecified; E11.9 Type 2 diabetes mellitus without complications; Z79.4 Long term (current) use of insulin; Z79.84 Long term (current) use of oral hypoglycemic drugs; Z79.85 Long-term (current) use of injectable non-insulin antidiabetic drugs; Z79.82 Long term (current) use of aspirin; Z79.899 Other long term (current) drug therapy; Z87.891 Personal history of nicotine dependence
CPT/HCPCS: 45380; 43239; 82947; 88305; 88342; C1726; J2704

== ENCOUNTER → 2023-09-30 07:31 | Outpatient (BNV) | payer MEDICAID, SELFPAY | PROVIDERS: PCP Internal Medicine; Visit Provider Internal Medicine Gastroenterology | DX: K20.90 Esophagitis, unspecified without bleeding (principal); K29.70 Gastritis, unspecified, without bleeding; Z12.11 Encounter for screening for malignant neoplasm of colon; K63.5 Polyp of colon; K57.90 Diverticulosis of intestine, part unspecified, without perforation or abscess without bleeding; K64.8 Other hemorrhoids | CPT/HCPCS: 43239; 45380 ==

== ENCOUNTER 2023-10-15 09:01 | Outpatient (AMB) | payer MEDICAID, SELFPAY ==
[2023-10-15 09:03] VITALS: BP 140/78; PULSE 69; BMI 27.8
--- NOTE | 2023-10-15 09:03 | A.OFFVIS_ITS ---
Intake Vital Signs 10/15/23 09:03 Height 5 ft 6 in Weight 171 lb 15.369 oz BMI 27.8 BP 140/78 H Blood Pressure Location Lt brachial Position Sitting Pulse 69 Pulse Source Pulse Oximeter Intake Visit Reasons: S/P [place],EGD; Dr. Flores Intake Note: Pt presents to the office today for a s/p colo, EGD. PT states he is feeling well and denies any GI concerns at this time. Allergies No Known Allergies Allergy (Verified 10/15/23 09:06) HPI S/P [place],EGD; Dr. Flores HPI Details LAST VISIT Dysphagia Patient reports that he no longer has symptoms of dysphagia. Denies dyspepsia and odynophagia. We will send patient for upper endoscopy to rule out GERD, esophagitis, gastric or peptic ulcer. Screen for colon cancer Discussed with patient the importance of good bowel prep. Patient denies any issues with anesthesia in the past. No history of sleep apnea. On low-dose aspirin daily. Denies any melena, hematochezia, unintentional weight loss or ribbon like stools. Moving his bowels daily. Denies any GI, cardiac or respiratory symptoms. What to expect before during and after procedure discussed with patient. Went over clear liquid diet and bowel prep. Patient is taking Lantus in the evening. Discussed with patient and his to take half of his insulin 2 nights and 1 night before the procedure to prevent his blood sugars from dropping. Both patient and his are agreeable to plan of care and verbalize understanding of instructions. They were given the opportunity to ask questions and all questions answered. ? UPPER ENDOSCOPY AND COLONOSCOPY Findings: Larynx:normal Esophagus: GE junction at 40 cm, diaphragm hiatus at 40 cm, samll erosion noted at GEJ, and some mild esophagitis, bx taken from GEJ, distal and proximal esophagus Stomach: Patchy erythema and erosions in the antrum. Biopsies were obtained. Grade 2 flap valve on retroflexed examination of the cardia. Duodenum: Mild duodenitis Intervention: Biopsies as noted above Findings: Terminal Ileum-normal Cecum: x 3 polypois lesions 4-5 mm removed with cold forceps Ascending Colon: normal Transverse Colon -normal Descending Colon:normal Sigmoid Colon: moderate diverticulosis Rectum: Retroflexion with medium sized internal hemorrhoids, grade I Anorectum - normal Colon preparation: [place] Bowel Preparation Scale Right colon; 2 Transverse colon: 2 Left colon; 2 (0 = Unprepared colon segment with mucos a not seen due to solid stool that cannot be cleared. 1 = Portion of mucosa of the colon segme nt seen, but other areas of the colon segment not well seen due to staining, residual stool and/or opaque liquid. 2 = Minor amount of residual staining, s mall fragments of stool and/or opaque liquid, but mucosa of colon segment seen well. 3 = Entire mucosa of colon segment seen well with no residual staining, small fragments of stool or opaque liquid) Impression and Post Procedure Diagnosis: Endoscopy Findings: erosive esophagitis erosive gastritis PATHOLOGY RESULTS Colonoscopy Findings: polyps internal hemorrhoids diverticular disease Plan: Await Pathology results Repeat Colonoscopy in 5-7 years if adenomatous polyps, 10 yrs if benign tissue or earlier if clinically indicated High fiber diet leaflet avoid straining at stool, epsom salts and sitz bath, anusol supps or cream if H pylori pos then treat PATHOLOGY Diagnosis A. Cecum, polypectomies: Tubular adenoma; negative for high-grade epithelial dysplasia/invasive carcinoma. B. Stomach, biopsies: Mild chronic inactive gastritis; no evidence of H. pylori, intestinal metaplasia or dysplasia. C. GE junction, biopsies: Esophageal squamous mucosa with mild reactive changes; no evidence of intraepithelial eosinophils, fungal organisms, intestinal metaplasia, dysplasia or invasive carcinoma. D. Distal esophagus, biopsies: Esophageal squamous mucosa with no diagnostic abnormality; no evidence of active esophagitis, fungal organisms, dysplasia or malignancy. E. Proximal esophagus, biopsies: Esophageal squamous mucosa with no diagnostic abnormality; no evidence of active esophagitis, fungal organisms, dysplasia or malignancy TODAY'S VISIT Patient is here today for follow-up and to discuss upper endoscopy in colonoscopy results. Patient denies any ill effects from the prep, anesthesia or procedure itself. Patient reports that he has been feeling well since procedure. Denies any dyspepsia, dysphagia or odynophagia. Patient denies any melena, hematochezia, unintentional weight loss or ribbon like stools. Patient states that he will occasionally be constipated where he will have no bowel movement for 1-2 days. Patient he no longer has dysphagia like he had before. Upper endoscopy and colonoscopy results discussed with patient. Currently patient denies any other GI concerning symptoms [facility] Medical History Gout Hernia Diabetes Surgical History History of bilateral inguinal hernia repair H/O colonoscopy History of eye surgery Family History Father Diabetic acetonemia Eye disease Mother Diabetic acetonemia Eye disease Sister Thyroid activity decreased Sister Thyroid cancer Social History (Updated 10/15/23 @ 09:07 by Kelsey Wright MA) Alcohol intake: never Patient Tobacco Use Status: Former Tobacco user Review of Systems Const Denies weight gain and Denies weight loss ENT Reports no additional complaints, Denies dysphagia and Denies odynophagia Card Reports no additional complaints Resp Reports no additional complaints GI Denies abdominal pain, Denies belching, Denies melena, Denies bloating, Denies change in bowel habits, Denies dysphagia, Denies excessive flatus, Denies dyspepsia, Denies heartburn, Denies diarrhea, Denies loose stools, Denies nausea, Denies odynophagia and Denies vomiting Reports no additional complaints Musc Reports no additional complaints Neuro Reports no additional complaints Psych Reports no additional complaints Endo Reports no additional complaints Physical Exam Vital Signs: Last Vital Signs Pulse 69 10/15/23 09:03 BP 140/78 H 10/15/23 09:03 BMI result Body Mass Index 27.8 Const General: healthy appearing, no acute distress and well developed Nutritional Appearance: well nourished Orientation/consciousness: patient oriented x3 HEENT Head: Yes normal to inspection, Yes normocephalic and Yes atraumatic Neck Neck: Yes normal visual inspection, Yes full ROM and Yes trachea midline Thyroid: Thyroid normal Resp Effort & Inspection: normal respiratory effort, able to speak in complete sentences, no tracheal deviation and symmetric chest movement Auscultation: clear to auscultation bilaterally Cardio Rate: regular rate GI Inspection: Yes normal to inspection and No distended Palpation (GI): Soft to palpation, not firm, nontender and No hepatosplenomegaly present Auscultation: normal bowel sounds General: Yes no CVA tenderness Back/Spine/Pelvis Back: no CVA tenderness Skin General skin exam: elasticity normal, turgor normal and dry skin Neuro General: patient oriented x3 Psych Appearance: grossly normal Mental Status: mental status grossly normal Assessment & Plan Assessment & Plan (1) Gastritis: Code(s): K29.70 - Gastritis, unspecified, without bleeding Qualifiers: Gastritis type: other gastritis Chronicity: chronic Gastritis bleeding: without bleeding Qualified Code(s): K29.50 - Unspecified chronic gastritis without bleeding (2) Constipation: Code(s): K59.00 - Constipation, unspecified Qualifiers: Constipation type: slow transit constipation Qualified Code(s): K59.01 - Slow transit constipation Plan Patient can take MiraLax every day to help with constipation. Gastritis and esophagitis found. No dysplasia found on biopsy. Patient will start taking pantoprazole in the morning half an hour before breakfast. One polyp in cecum showed tubular adenoma. Patient denies any melena, hematochezia, unintentional weight loss or black stools. Patient denies any dyspepsia, dysphagia or odynophagia. Will follow-up in the office in 6 months, sooner on as needed basis. Patient is agreeable to this plan and verbalizes understanding of instructions. He was given the opportunity to ask questions and all questions answered. Thank you for allowing me to participate in his care Medications: New polyethylene glycol 3350 (Miralax) 17 grams PO DAILY 510 grams 2RF pantoprazole take one tablet half an hour before breakfast 40 mg PO DAILY 30 tabs 4RF K21.9 - Gastro-esophageal reflux disease without esophagitis Coding Level of Care Code Est Pt Level 3 (17388) Diagnoses Other chronic gastritis without hemorrhage K29.50 Gastritis type: other gastritis Chronicity: chronic Gastritis bleeding: without bleeding Slow transit constipation K59.01 Constipation type: slow transit constipation Time Spent (min) 30 Comment 20 minutes spent with patient and additional 10 minutes spent reviewing his records
== END 2023-10-15 09:58 | disposition home or self-care (01) ==
PROVIDERS: PCP Internal Medicine; Visit Provider Nurse Practitioner Family
DX: K29.50 Unspecified chronic gastritis without bleeding (principal); K59.01 Slow transit constipation
CPT/HCPCS: 99213

== ENCOUNTER → 2023-10-15 09:01 | Outpatient (BNVA) | payer MEDICAID, SELFPAY | PROVIDERS: PCP Internal Medicine; Visit Provider Nurse Practitioner Family | DX: K29.50 Unspecified chronic gastritis without bleeding (principal); K59.01 Slow transit constipation | CPT/HCPCS: 99212 ==

== ENCOUNTER 2023-12-17 09:43 | Outpatient (REF) | payer MEDICAID, SELFPAY ==
[2023-12-17 14:28] LABS: MANUAL DIFF FLAG NO
[2023-12-17 14:32] LABS: Basophils Absolute Auto 0.1 X10*3/uL (0.0-0.2); Basophils Percent Auto 1.1 % (0-2); Eosinophils Absolute Auto 0.4 X10*3/uL (0.0-0.4); Eosinophils Percent Auto 5.9 % (0-4); Hemoglobin 12.8 g/dl (14.0-18.0); Imm Gran Abs Auto 0.03 X10*3/uL (0.00-0.03); Imm Gran Pct Auto 0.4 % (0.0-0.4); Lymphocytes Absolute Auto 1.7 X10*3/uL (1.2-4.9); Mean Corpuscular HGB Conc 32.8 g/dl (31.0-36.0); Mean Corpuscular Hemoglobin 31.4 pg (27.0-33.0); Mean Corpuscular Volume 95.6 fL (80.0-98.0); Mean Platelet Volume 10.6 fL (9.4-12.4); Monocytes Absolute Auto 0.6 X10*3/uL (0.1-1.2); Neutrophils Absolute Auto 4.6 x10*3/uL (2.0-8.3); Neutrophils Percent Auto 61.6 % (45-73); Platelet Count 218 X10*3/uL (160-400); Red Blood Count 4.08 X10*6/uL (4.60-5.80); Red Cell Distribution Width 13.5 % (11.0-16.0); White Blood Count 7.5 X10*3/uL (4.8-10.8)
[2023-12-17 14:46] LABS: Alanine Aminotransferase 29 U/L (0-40); Albumin Level 4.5 g/dL (3.5-5.0); Alkaline Phosphatase 59 U/L (39-117); Anion Gap 13 (12-20); Aspartate Amino Transferase 19 U/L (5-37); Bilirubin Total 0.5 mg/dL (0.0-1.0); Blood Urea Nitrogen 24 mg/dL (9-16); Calcium 9.5 mg/dL (8.4-10.2); Carbon Dioxide 26 mmol/L (22-29); Chloride 104 mmol/L (96-108); Cholesterol 116 mg/dL (<200); Estimated Glomerular Filt Rate > 60; Glucose Random 126 mg/dL (60-115); HDL Cholesterol 43 mg/dL (>40); LDL Cholesterol Calculated 54 mg/dL (<100); Potassium 4.5 mmol/L (3.3-5.1); Sodium 138 mmol/L (135-145); Total Protein 7.3 g/dL (6.5-8.0); Triglycerides 98 mg/dL (<150)
== END 2023-12-17 09:44 | disposition home or self-care (01) ==
LOC: HO.CHCLDS 09:43
PROVIDERS: Visit Provider Internal Medicine
DX: E11.42 Type 2 diabetes mellitus with diabetic polyneuropathy (principal); Z79.4 Long term (current) use of insulin
CPT/HCPCS: 36415; 80053; 80061; 85025

== ENCOUNTER 2024-04-14 08:37 | Outpatient (AMB) | payer MEDICAID, SELFPAY ==
--- NOTE | 2024-04-14 08:43 | MHC.OFFVIS ---
Vital Signs 04/14/24 08:47 Height 5 ft 6 in Weight 177 lb 11.081 oz BMI 28.7 BP 138/74 Blood Pressure Location Lt brachial Position Sitting Pulse 70 Pulse Source Pulse Oximeter Pulse Oximetry (%) 100 Oxygen Delivery Method Room Air Intake Visit Reasons: 6 month follow up Intake Note: Kemar presents in office today for a scheduled 6 mos FUV. CC; Kemar is here today to discuss his sx and meds. Pt reports that his sx remain unchanged and he would like to discuss some potential alternative treatments. House Carpenter Helper Required: Yes Allergies No Known Allergies Allergy (Verified 04/14/24 08:49) HPI HPI 6 month follow up: Details: LAST VISIT: Gastritis Constipation Plan Patient can take MiraLax every day to help with constipation. Gastritis and esophagitis found. No dysplasia found on biopsy. Patient will start taking pantoprazole in the morning half an hour before breakfast. One polyp in cecum showed tubular adenoma. Patient denies any melena, hematochezia, unintentional weight loss or black stools. Patient denies any dyspepsia, dysphagia or odynophagia. Will follow-up in the office in 6 months, sooner on as needed basis. Patient is agreeable to this plan and verbalizes understanding of instructions. He was given the opportunity to ask questions and all questions answered. ? Thank you for allowing me to participate in his care Medications New polyethylene glycol 3350 (Miralax) 17 grams PO DAILY 510 grams 2RF pantoprazole take one tablet half an hour before breakfast 40 mg PO DAILY 30 tabs 4RF K21.9 TODAY'S VISIT Patient is here today for follow-up. Patient is accompanied by his . rehabilitation liaison used for this visit. Patient reports that his symptoms of acid reflux are suppressed for the most part with pantoprazole. Occasionally patient still feels bloated and does not feel like she empties his bowels completely. Patient states that MiraLax has not been very helpful. Patient denies any melena, hematochezia, unintentional weight loss or ribbon like stools. Denies dyspepsia, dysphagia or odynophagia. Patient reports to have good appetite. Eating fairly healthy. Stable weight. Patient reports that he walks several miles each day. [facility] Medical History Gout Hernia Diabetes Surgical History History of bilateral inguinal hernia repair H/O colonoscopy History of eye surgery Family History Father Diabetic acetonemia Eye disease Mother Diabetic acetonemia Eye disease Sister Thyroid activity decreased Sister Thyroid cancer Social History Alcohol intake: never Patient Tobacco Use Status: Former Tobacco user Review of Systems Const Denies weight gain and Denies weight loss ENT Reports no additional complaints, Denies dysphagia and Denies odynophagia Card Reports no additional complaints Resp Reports no additional complaints GI Denies abdominal pain, Denies belching, Denies melena, Denies bloating, Reports constipation, Denies dysphagia, Denies excessive flatus, Denies dyspepsia, Denies heartburn, Denies diarrhea, Denies loose stools, Denies nausea, Denies odynophagia and Denies vomiting Reports no additional complaints Musc Reports no additional complaints Neuro Reports no additional complaints Psych Reports no additional complaints Endo Reports no additional complaints Physical Exam Vital Signs: Last Vital Signs Pulse 70 04/14/24 08:47 BP 138/74 04/14/24 08:47 Pulse Ox 100 04/14/24 08:47 Oxygen Delivery Method Room Air 04/14/24 08:47 BMI result Body Mass Index 28.7 Const Other: Legally blind General: healthy appearing, no acute distress and well developed Nutritional Appearance: well nourished Orientation/consciousness: patient oriented x3 Resp Effort & Inspection: normal respiratory effort, able to speak in complete sentences, no tracheal deviation and symmetric chest movement Auscultation: clear to auscultation bilaterally Cardio Rate: regular rate GI Inspection: Yes normal to inspection and No distended Palpation (GI): Soft to palpation, not firm, nontender and No hepatosplenomegaly present Auscultation: normal bowel sounds General: Yes no CVA tenderness Back/Spine/Pelvis Back: no CVA tenderness Skin General skin exam: elasticity normal, turgor normal and dry skin Neuro General: patient oriented x3 Psych Appearance: grossly normal Mental Status: mental status grossly normal Assessment & Plan Assessment & Plan (1) Constipation: Code(s): K59.00 - Constipation, unspecified Qualifiers: Constipation type: slow transit constipation Qualified Code(s): K59.01 - Slow transit constipation (2) GERD (gastroesophageal reflux disease): Code(s): K21.9 - Gastro-esophageal reflux disease without esophagitis Qualifiers: Esophagitis presence: without esophagitis Qualified Code(s): K21.9 - Gastro-esophageal reflux disease without esophagitis Plan Continue pantoprazole daily. Avoid dietary triggers and late night snacking. Staying upright for minimum 3 hours after meals discussed with patient. Patient will start taking Senokot every evening to help him empty his bowels better. Increase fluid intake. Continue with daily activities to promote better bowel motility. I will see patient in 3 months, sooner on as needed basis. He is agreeable to this plan and verbalizes understanding of instructions. He was given the opportunity to ask questions and all questions answered. Thank you for allowing me to participate in his care Medications: New sennosides (Natural Senna Laxative) 17.2 mg (2 x 8.6 mg) PO BEDTIME 180 tabs 3RF constipation K59.00 - Constipation, unspecified Refilled pantoprazole take one tablet half an hour before breakfast 40 mg PO DAILY 90 tabs 3RF K21.9 - Gastro-esophageal reflux disease without esophagitis Discontinued polyethylene glycol 3350 (Miralax) Discontinued Reason: Doctor's Order 17 grams PO DAILY 510 grams 2RF Coding Level of Care Code Est Pt Level 3 (02924) Diagnoses Slow transit constipation K59.01 Constipation type: slow transit constipation Gastroesophageal reflux disease without esophagitis K21.9 Esophagitis presence: without esophagitis Time Spent (min) 25 Comment 15 minutes spent with patient and additional 10 minutes spent reviewing his records
[2024-04-14 08:47] VITALS: BP 138/74; PULSE 70; O2SAT 100; BMI 28.7
== END 2024-04-14 09:18 | disposition home or self-care (01) ==
PROVIDERS: PCP Internal Medicine; Visit Provider Nurse Practitioner Family
DX: K59.01 Slow transit constipation (principal); K21.9 Gastro-esophageal reflux disease without esophagitis
CPT/HCPCS: 99213

== ENCOUNTER → 2024-04-14 08:37 | Outpatient (BNVA) | payer MEDICAID, SELFPAY | PROVIDERS: PCP Internal Medicine; Visit Provider Nurse Practitioner Family | DX: K59.01 Slow transit constipation (principal); K21.9 Gastro-esophageal reflux disease without esophagitis | CPT/HCPCS: 99212 ==

== ENCOUNTER 2024-06-17 08:10 | Outpatient (REF) | payer MEDICAID, SELFPAY ==
[2024-06-17 14:39] LABS: Estimated Average Glucose 146 mg/dL; Hemoglobin A1c % 6.7 % (<6.0)
[2024-06-17 14:52] LABS: Alanine Aminotransferase 23 U/L (0-40); Albumin Level 4.4 g/dL (3.5-5.0); Alkaline Phosphatase 57 U/L (39-117); Anion Gap 14 (12-20); Aspartate Amino Transferase 16 U/L (5-37); Bilirubin Total 0.5 mg/dL (0.0-1.0); Blood Urea Nitrogen 26 mg/dL (9-16); Calcium 9.9 mg/dL (8.4-10.2); Carbon Dioxide 25 mmol/L (22-29); Chloride 105 mmol/L (96-108); Cholesterol 115 mg/dL (<200); Estimated Glomerular Filt Rate > 60; Glucose Random 134 mg/dL (60-115); HDL Cholesterol 46 mg/dL (>40); LDL Cholesterol Calculated 57 mg/dL (<100); Potassium 4.8 mmol/L (3.3-5.1); Sodium 139 mmol/L (135-145); Total Protein 7.1 g/dL (6.5-8.0); Triglycerides 60 mg/dL (<150)
[2024-06-17 15:06] LABS: Microalbum/Creatinine Ratio Ur 6.5 ug/mg cr (<30)
== END 2024-06-17 08:11 | disposition home or self-care (01) ==
LOC: HO.CHCLDS 08:10
PROVIDERS: Visit Provider Internal Medicine
DX: E11.42 Type 2 diabetes mellitus with diabetic polyneuropathy (principal); Z79.4 Long term (current) use of insulin
CPT/HCPCS: 36415; 80053; 80061; 82043; 82570; 83036

== ENCOUNTER 2024-07-26 08:53 | Outpatient (AMB) | payer MEDICAID, SELFPAY ==
[2024-07-26 08:59] VITALS: BP 122/80; PULSE 72; O2SAT 100; BMI 27.6
--- NOTE | 2024-07-26 08:59 | MHC.OFFVIS ---
Vital Signs 07/26/24 08:59 Height 5 ft 6 in Weight 171 lb 1.259 oz BMI 27.6 BP 122/80 Blood Pressure Location Lt brachial Position Sitting Pulse 72 Pulse Source Pulse Oximeter Pulse Oximetry (%) 100 Oxygen Delivery Method Room Air Intake Visit Reasons: 3 month follow up Intake Note: Kemar presents in office today for a scheduled 3 mos FUV. CC; Pt reports that he has been doing OK since their last visit and has remained stable. However, he still is reporting the same chronic sx as previously and notes that it has not improved to any significant degree since their last visit. Pt reports that he is still taking all of his medications as intended. Pt denies any need for medications refills at this time. Chinese Language Professor Required: Yes Chinese Language Professor Services: Chinese Language Professor Offered & Declined Chinese Language Professor Name: Family member Allergies No Known Allergies Allergy (Verified 07/26/24 09:00) HPI HPI 3 month follow up: Details: LAST VISIT: Constipation GERD (gastroesophageal reflux disease) Plan Continue pantoprazole daily. Avoid dietary triggers and late night snacking. Staying upright for minimum 3 hours after meals discussed with patient. Patient will start taking Senokot every evening to help him empty his bowels better. Increase fluid intake. Continue with daily activities to promote better bowel motility. I will see patient in 3 months, sooner on as needed basis. He is agreeable to this plan and verbalizes understanding of instructions. He was given the opportunity to ask questions and all questions answered. ? Thank you for allowing me to participate in his care Medications New sennosides (Natural Senna Laxative) 17.2 mg (2 x 8.6 mg) PO BEDTIME 180 tabs 3RF constipation K59.00 Refilled pantoprazole take one tablet half an hour before breakfast 40 mg PO DAILY 90 tabs 3RF K21.9 Discontinued polyethylene glycol 3350 (Miralax) Discontinued Reason: Doctor's Order 17 grams PO DAILY 510 grams 2RF TODAY'S VISIT: Patient is here today for follow-up. Patient is accompanied by his who is translating for us per patient's request. Patient reports that he continues to have occasional abdominal bloating depending on what he eats. Patient reports that usually happens when he eats breakfast sausage or anything with garlic and certain spices. Patient is taking pantoprazole in the morning and states that his symptoms are suppressed for the most part. Patient reports that when he gets bloated he feels like his abdomen is very hard and he has to stand up and burp in order for his symptoms to get better. Patient denies any dyspepsia, dysphagia or odynophagia. He reports that he is moving his bowels, unsure if he is emptying his bowels completely when he has a bowel movement. He is no longer taking senna, feels like he does not need to at this point. Denies any melena, hematochezia. During episodes of bloating patient denies any abdominal pain or discomfort. [facility] Medical History Gout Hernia Diabetes Surgical History History of bilateral inguinal hernia repair H/O colonoscopy History of eye surgery Family History Father Diabetic acetonemia Eye disease Mother Diabetic acetonemia Eye disease Sister Thyroid activity decreased Sister Thyroid cancer Social History Alcohol intake: never Patient Tobacco Use Status: Former Tobacco user Review of Systems Const Denies weight gain and Denies weight loss ENT Reports no additional complaints, Denies dysphagia and Denies odynophagia Card Reports no additional complaints Resp Reports no additional complaints GI Denies abdominal pain, Denies belching, Denies melena, Denies bloating, Denies change in bowel habits, Reports constipation, Denies dysphagia, Denies excessive flatus, Denies dyspepsia, Denies heartburn, Denies diarrhea, Denies loose stools, Denies nausea, Denies odynophagia and Denies vomiting Reports no additional complaints Musc Reports no additional complaints Neuro Reports no additional complaints Psych Reports no additional complaints Endo Reports no additional complaints Physical Exam Vital Signs: Last Vital Signs Pulse 72 07/26/24 08:59 BP 122/80 07/26/24 08:59 Pulse Ox 100 07/26/24 08:59 Oxygen Delivery Method Room Air 07/26/24 08:59 BMI result Body Mass Index 27.6 Const Other: Legally blind General: healthy appearing, no acute distress and well developed Nutritional Appearance: well nourished Orientation/consciousness: patient oriented x3 Resp Effort & Inspection: normal respiratory effort, able to speak in complete sentences, no tracheal deviation and symmetric chest movement Auscultation: clear to auscultation bilaterally Cardio Rate: regular rate GI Inspection: Yes normal to inspection and No distended Palpation (GI): Soft to palpation, not firm, nontender and No hepatosplenomegaly present Auscultation: normal bowel sounds General: Yes no CVA tenderness Back/Spine/Pelvis Back: no CVA tenderness Skin General skin exam: elasticity normal, turgor normal and dry skin Neuro General: patient oriented x3 Psych Appearance: grossly normal Mental Status: mental status grossly normal Assessment & Plan Assessment & Plan (1) Constipation: Code(s): K59.00 - Constipation, unspecified Qualifiers: Constipation type: slow transit constipation Qualified Code(s): K59.01 - Slow transit constipation (2) GERD (gastroesophageal reflux disease): Code(s): K21.9 - Gastro-esophageal reflux disease without esophagitis Qualifiers: Esophagitis presence: esophagitis presence not specified Qualified Code(s): K21.9 - Gastro-esophageal reflux disease without esophagitis (3) Postprandial abdominal bloating: Code(s): R14.0 - Abdominal distension (gaseous) Plan Continue pantoprazole daily. Avoid dietary triggers and late night snacking. Staying upright for minimum 3 hours after meals discussed with patient. Discussed with patient low FODMAP diet. List of food recommended as well as list of food to avoid given to patient. Patient will speak to his PCP about Trulicity to see if he would be able to stay off of it. Symptoms of abdominal bloating can be controlled with diet. Discussed with patient and his . Patient will return in 6 months, sooner on as needed basis. Both patient and his are agreeable to plan of care and verbalizes understanding of instructions. They were given the opportunity to ask questions and all questions answered. Thank you for allowing me to participate in his care Coding Level of Care Code Est Pt Level 3 (63056) Diagnoses Slow transit constipation K59.01 Constipation type: slow transit constipation Gastroesophageal reflux disease, unspecified whether esophagitis present K21.9 Esophagitis presence: esophagitis presence not specified Postprandial abdominal bloating R14.0 Time Spent (min) 25 Comment 15 minutes spent with patient and additional 10 minutes spent reviewing his records
== END 2024-07-26 10:16 | disposition home or self-care (01) ==
PROVIDERS: PCP Internal Medicine; Visit Provider Nurse Practitioner Family
DX: K59.01 Slow transit constipation (principal); K21.9 Gastro-esophageal reflux disease without esophagitis; R14.0 Abdominal distension (gaseous)
CPT/HCPCS: 99213

== ENCOUNTER → 2024-07-26 08:53 | Outpatient (BNVA) | payer MEDICAID, SELFPAY | PROVIDERS: PCP Internal Medicine; Visit Provider Nurse Practitioner Family | DX: K59.01 Slow transit constipation (principal); K21.9 Gastro-esophageal reflux disease without esophagitis; R14.0 Abdominal distension (gaseous) | CPT/HCPCS: 99212 ==

== ENCOUNTER 2024-09-14 11:07 | Outpatient (REF) | payer MEDICAID, SELFPAY ==
[2024-09-14 15:09] LABS: TSH reflex Free T4 0.84 uIU/mL (0.32-4.0)
== END 2024-09-14 11:08 | disposition home or self-care (01) ==
LOC: HO.CHCLDS 11:07
PROVIDERS: Visit Provider Internal Medicine
DX: T68.XXXA Hypothermia, initial encounter (principal)
CPT/HCPCS: 36415; 84443

== ENCOUNTER 2025-03-08 16:14 | Outpatient (REF) | payer MEDICAID, SELFPAY ==
[2025-03-09 09:38] LABS: Adenovirus PCR Not Detected (Not Detect.); Bordetella parapertussis PCR Not Detected (Not Detect.); Bordetella pertussis PCR Not Detected (Not Detect.); Chlamydia pneumoniae PCR Not Detected (Not Detect.); Coronavirus 229E PCR Not Detected (Not Detect.); Coronavirus HKU1 PCR Not Detected (Not Detect.); Coronavirus NL63 PCR Not Detected (Not Detect.); Coronavirus OC43 PCR Not Detected (Not Detect.); Human metapneumovirus PCR Not Detected (Not Detect.); Influenza A PCR Not Detected (Not Detect.); Influenza B PCR Not Detected (Not Detect.); Mycoplasma pneumoniae PCR Not Detected (Not Detect.); Parainfluenza 1 PCR Not Detected (Not Detect.); Parainfluenza 2 PCR Not Detected (Not Detect.); Parainfluenza 3 PCR Not Detected (Not Detect.); Parainfluenza 4 PCR Not Detected (Not Detect.); RSV PCR Not Detected (Not Detect.); Rhino/Enterovirus PCR Not Detected (Not Detect.)
[2025-03-09 10:06] LABS: Influenza A H1 PCR Not Detected (Not Detect.); Influenza A H1-2009 PCR Not Detected (Not Detect.); Influenza A H3 PCR Not Detected (Not Detect.); SARS-CoV-2 PCR Not Detected (Not Detect.)
== END 2025-03-08 16:15 | disposition home or self-care (01) ==
LOC: HO.CHCLNP 16:14
PROVIDERS: Visit Provider Pediatrics
DX: R05.1 Acute cough (principal)
CPT/HCPCS: 87633

== ENCOUNTER 2025-03-15 17:00 | Emergency (ER) | payer MEDICAID, SELFPAY ==
[2025-03-15 17:24] VITALS: BP 130/69; BP 140/86; PULSE 120; PULSE 125; RESP 20; TEMP 37.3; O2SAT 100; O2SAT 98
[2025-03-15 17:28] VITALS: BP 119/75; PULSE 115; RESP 18; TEMP 37.3; O2SAT 97; BMI 27.1
--- NOTE | 2025-03-15 17:30 | ECG_ITS ---
Test Reason : abd pain Blood Pressure : */* mmHG Vent. Rate : 117 BPM Atrial Rate : 117 BPM P-R Int : 132 ms QRS Dur : 78 ms QT Int : 316 ms P-R-T Axes : 43 -25 41 degrees QTcB Int : 440 ms Sinus tachycardia Otherwise normal ECG No previous ECGs available Referred By: Generic ED Physician Electronically Signed By: JENN FRAZIER MD
--- OUTSIDE RECORDS SUMMARY | 2025-03-15 17:54 | XMS_ITS | Encounter Summary ---
Author Organization [employer] Address [address] [place] [address] Care Team Providers Care Public Works Commissioner Name Role Phone Gian Reyna MD Primary Care Prov ider Reason for Visit * Reason Onset Date Comments Medication Question 12/25/2023 Encounter Details Date Type Department Care Team ([facility] st Contact Info) Description 12/25/2023 Telephone [facility] [address] [place], [place] [phone] Gian Reyna MD [address] [place], [place] [phone] Medication Question Social History Tobacco Use Types Packs/Day Years Used Date Smoking Tobacco: Never Passive Smoke Exposure: Never Smokeless Tobacco: Never Depression Answer Date Recorded Patient Health Questionnaire-9 Score 0 01/22/2023 Housing Stability Answer Date Recorded What is your housing situation today? I have alyce leiva 08/28/[address] you li ve. Do you have problems with any of the following? None of the above 08/28/2023 Food Insecurity Answer Date Recorded Within the past 12 months, y ou worried that your food would run out before you got money to buy more: Never True 08/28/2023 Within the past 12 months,th e food you bought just didn't last and you didn't have enough money to get more: Never True Transportation Answer Date Recorded In the past 12 months, has l ack of transportation kept you from medical appts, meetings, work or from getting things needed for daily living? No 08/28/2023 Utilities Answer Date Recorded In the past 12 months, has t he electric, gas, oil or water company threatened to shut off services in your home? No 08/28/2023 Depression Answer Date Recorded Patient Health Questionnaire-2 Score 0 01/22/2023 Sex and Gender Information Value Date Recorded Sex Assigned at Male 09/02/2022 10:20 AM EDT Legal Sex Male 10:20 AM EDT Gender Identity Male 09/02/2022 10:20 AM EDT Sexual Orientation Straight 09/02/2022 10 :20 AM EDT documented as of this encounter Miscellaneous Notes * Telephone Encounter - Juan Soto - 12/25/2023 11:04 AM EST Tc from patient calling to request the status of a medication for anxiety for traveling patient states PCP is aware of the medication and was suppose to send a script however policy writer typist does not see anything on file documented in this encounter Plan of Treatment Upcoming Encounters Date Type Department Care Team (Late st Contact Info) Description 04/11/2025 10:30 AM EDT Office Visit [facility] MED & PEDS [address] [place] [address] Gian Reyna MD [address] [place] [address] documented as of this encounter Visit Diagnoses Not on filedocumented in this encounter Additional Health Concerns Assessment Noted Time PHQ-9 Depression Total Score: 0 01/23/20 23 10:59 AM EDT documented as of this encounter Care Teams Public Works Commissioner Relationship Specialty Start Date End Date Gian Reyna MD [address] [place] [address] PCP - General Internal Medicine 11/16/20 documented as of this encounter
--- OUTSIDE RECORDS SUMMARY | 2025-03-15 17:55 | XMS_ITS | Encounter Summary ---
Author Organization [employer] Address [address] [place] [address] Care Team Providers Care Dulite Machine Bluer Name Role Phone Gian Reyna MD Primary Care Prov ider Reason for Visit * Reason Comments Med Refill Encounter Details Date Type Department Care Team ([facility] st Contact Info) Description 02/20/2024 Refill [facility] MED & PEDS [address] [place], [place] [phone] Gian Reyna MD [address] [place] [address] Social History Tobacco Use Types Packs/Day Years [...] AM EDT documented as of this encounter Plan of Treatment Upcoming Encounters Date Type Department Care Team (Late st Contact Info) Description 04/11/2025 10:30 AM EDT Office Visit [facility] MED & PEDS [address] [place] [address] Gian Reyna MD [address] [place] [address] documented as of this encounter Visit Diagnoses Not on filedocumented in this encounter Additional Health Concerns Assessment Noted Time PHQ-9 Depression Total Score: 0 01/23/20 23 10:59 AM EDT documented as of this encounter Care Teams Dulite Machine Bluer Relationship Specialty Start Date End Date Gian Reyna MD [address] [place] [address] PCP - General Internal Medicine 11/16/20 documented as of this encounter
--- OUTSIDE RECORDS SUMMARY | 2025-03-15 17:55 | XMS_ITS | Encounter Summary ---
Author Organization [employer] Address [address] [place] [address] Care Team Providers Care Tree Sapper Name Role Phone Gian Reyna MD Primary Care Prov ider Reason for Visit * Reason Comments Med Refill Encounter Details Date Type Department Care Team ([facility] Contact Info) Description 01/30/2023 Refill [facility] MED & PEDS [address] [place] [address] Gian Reyna MD [address] [place] [address] Social History Tobacco Use Types Packs/Day Years Used Date Smoking Tobacco: Never Assessed Depression Answer Date Recorded Patient Health Questionnaire-9 Score 0 01/22/2023 Depression Answer Date Recorded Patient Health Questionnaire-2 Score 0 01/22/2023 Sex and Gender Information Value Date Recorded Sex Assigned at Male 09/02/2022 10:20 AM EDT Legal Sex Male 10:20 AM EDT Gender Identity Male 09/02/2022 10:20 AM EDT Sexual Orientation Straight 09/02/2022 10 :20 AM EDT COVID-19 Exposure Response Date Recorded In the last 10 days, have yo u been in contact with someone who was confirmed or suspected to have Coronavirus/COVID-19? No / Unsure 01/22/2023 10:20 AM EDT documented as of this encounter Plan of Treatment Upcoming Encounters Date Type Department Care Team ([facility] Contact Info) Description 04/11/2025 10:30 AM EDT Office Visit [facility] MED & PEDS [address] [place] [address] Gian Reyna MD [address] [place] [address] documented as of this encounter Visit Diagnoses Not on filedocumented in this encounter Additional Health Concerns Assessment Noted Time PHQ-9 Depression Total Score: 0 01/23/20 23 10:59 AM EDT documented as of this encounter Care Teams Tree Sapper Relationship Specialty Start Date End Date Gian Reyna MD [address] [place] [address] PCP - General Internal Medicine 11/16/20 documented as of this encounter
--- OUTSIDE RECORDS SUMMARY | 2025-03-15 17:55 | XMS_ITS | Encounter Summary ---
Author Organization [employer] Address [address] [place] [address] Care Team Providers Care Light Bulb Tester Name Role Phone Gian Reyna MD Primary Care Prov ider Reason for Visit * Reason Comments Med Refill Encounter Details Date Type Department Care Team ([facility] st Contact Info) Description 02/25/2025 Refill [facility]S [address] [place], [place] [phone] Kimberley Andrade MD [address] [place] [address] Social History Tobacco Use Types Packs/Day Years Used Date Smoking Tobacco: Never Passive Smoke Exposure: Never Smokeless Tobacco: Never Alcohol Answer Date Recorded Frequency of Alcohol Consumption Not on file 09/14/2024 Average Number of Drinks Not on file 024 Frequency of Binge Drinking Not on file 09/03 Score 0 09/14/2024 Depression Answer Date Recorded Patient Health Questionnaire-9 Score 0 06/01/2024 Patient Health Questionnaire-9 Score 0 06/01/2024 Last PHQ-9: Questionnaire Data Not on file 0 06/01/2024 Housing Stability Answer Date Recorded What is your housing situation today? I have alyce leiva 06/01/[address] you li ve. Do you have problems with any of the following? None of the above 06/01/2024 Food Insecurity Answer Date Recorded Within the past 12 months, y ou worried that your food would run out before you got money to buy more: Never True 06/01/2024 Within the past 12 months,th e food you bought just didn't last and you didn't have enough money to get more: Never True Transportation Answer Date Recorded In the past 12 months, has l ack of transportation kept you from medical appts, meetings, work or from getting things needed for daily living? No 06/01/2024 Utilities Answer Date Recorded In the past 12 months, has t he electric, gas, oil or water company threatened to shut off services in your home? No 06/01/2024 Depression Answer Date Recorded Patient Health Questionnaire-2 Score 0 06/01/2024 Internet Access Answer Date Recorded Internet Access Q1 Yes 07/05/2024 Internet Access Q2 Not on file 07/05/2024 Sex and Gender Information Value Date Recorded Sex Assigned at Male 09/02/2022 10:20 AM EDT Legal Sex Male 10:20 AM EDT Gender Identity Male 09/02/2022 10:20 AM EDT Sexual Orientation Straight 09/02/2022 10 :20 AM EDT documented as of this encounter Plan of Treatment Upcoming Encounters Date Type Department Care Team (Late st Contact Info) Description 04/11/2025 10:30 AM EDT Office Visit [facility] MED & PEDS [address] [place] [address] Gian Reyna MD [address] [place] [address] documented as of this encounter Visit Diagnoses Not on filedocumented in this encounter Additional Health Concerns Assessment Noted Time PHQ-9 Depression Total Score: 0 06/01/20 24 9:15 AM EDT documented as of this encounter Care Teams Light Bulb Tester Relationship Specialty Start Date End Date Gian Reyna MD [address] [place] [address] PCP - General Internal Medicine 11/16/20 documented as of this encounter
--- OUTSIDE RECORDS SUMMARY | 2025-03-15 17:55 | XMS_ITS | Encounter Summary ---
Author Organization [employer] Address [address] [place] [address] Care Team Providers Care Sap Basis Consultant Name Role Phone Gian Reyna MD Primary Care Prov ider Encounter Details Date Type Department Care Team (Late Contact Info) Description 02/03/2023 Orders Only [facility] MED & PEDS [address] [place] [address] Gian Reyna MD [address] [place] [address] Social History Tobacco Use Types Packs/Day Years [...] Description 04/11/2025 10:30 AM EDT Office Visit [facility] MED & PEDS [address] [place], [place] [phone] Gian Reyna MD [address] [place] [address] documented as of this encounter Visit Diagnoses Not on filedocumented in this encounter Additional Health Concerns Assessment Noted Time PHQ-9 Depression Total Score: 0 01/23/20 23 10:59 AM EDT documented as of this encounter Care Teams Sap Basis Consultant Relationship Specialty Start Date End Date Gian Reyna MD [address] [place] [address] PCP - General Internal Medicine 11/16/20 documented as of this encounter
--- OUTSIDE RECORDS SUMMARY | 2025-03-15 17:55 | XMS_ITS | Clinical Summary ---
Author Organization [employer] Address [address] [facility] [place] [address] Care Team Providers Care Testing And Regulating Chief Name Role Phone Gian Reyna MD Primary Care Prov ider Allergies Active Allergy Reactions Criticality Noted Date Comments Indomethacin 07/16/2007 caused rectal bleeding Metformin 06/01/2014 Diarrhea from 1,000 mg ok on 500 mg Medications Blood Glucose Monitoring Suppl (GrowYo [place] Lite) w/Device kit TEST BLOOD SUGAR THREE TIMES DAILY 022 Active clotrimazole (Lotrimin) 1 % cream APPLY TOPICALLY TO THE AFFECTED AND SURROUNDING AREAS TWICE DAILY IN THE MORNING AND IN THE EVENING 60 g 3 024 Active naproxen (Naprosyn) 500 MG tablet Take 1 tablet (500 mg) by mouth with breakfast and with evening meal. 60 tablet 024 Active allopurinol (Zyloprim) 300 MG tablet TAKE 1 TABLET(300 MG) BY MOUTH IN THE MORNING 30 tablet 11 024 Active insulin glargine (Lantus SoloStar) 100 UNIT/ML pen Inject 10 Units under the skin at bedtime. ADMINISTER 25 UNITS UNDER THE SKIN AT NIGHT 15 mL 3 024 Active cetirizine (ZyrTEC) 10 MG tablet TAKE 1 TABLET BY MOUTH EVERY DAY 90 tablet 3 024 Active insulin pen needle (B-D ULTRAFINE III SHORT PEN) 31G X 8 mm misc USE DIRECTED FOR INSULIN AMINISTRATION DAILY 100 each 3 025 Active Prodigy No Coding Blood Gluc test strip USE DIRECTED TO TEST BLOOD GLUCOSE THREE TIMES DAILY 100 strip 3 Active FreeStyle lancets 1 each by Other route 2 times daily. TEST BLOOD SUGAR TWICE DAILY 200 each Active LORazepam (Ativan) 0.5 MG tablet Take 1 tablet (0.5 mg) by mouth every 12 (twelve) hours if needed for anxiety for up to 2 days. 2 tablet Active atorvastatin (Lipitor) 10 MG tablet TAKE 1 TABLET(10 MG) BY MOUTH DAILY 90 tablet Active Trulicity 4.5 MG/0.5ML solution auto-injector ADMINISTER 4.5 MG UNDER THE SKIN 1 TIME EVERY WEEK 2 mL 3 Active losartan (Cozaar) 25 MG tablet Take half a tablet orally daily 30 tablet 11 Active amoxicillin (Amoxil) 500 MG capsule Take 1 capsule (500 mg) by mouth every 8 (eight) hours for 10 days. 30 capsule 025 2024 Active atorvastatin (Lipitor) 10 MG tablet Take 1 tablet (10 mg) by mouth Once per day. 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 0 06/09/2023 Assessment & Plan (06/09/2023 9:26 AM EDT): Resolved, uric acid levels were 8.1 will start on allopurinol target level <6.5 will follow up in 2 months Right inguinal hernia 06/09/2023 Assessment & Plan (06/09/2023 9:27 AM EDT): Will refer to surgery, hernia is reducible, no skin erythema, tenderness, reviewed red flags to visit er Heart murmur, aortic 01/22/2023 Assessment & Plan (01/22/2023 5:59 PM EDT): Aortic murmur, will order a echocardiogram Primary hypertension 01/22/2023 Assessment & Plan (01/05/2025 12:49 PM EST): Controlled, contineu low sodium diet and exercise as tolerated, keep bp log, follow up in 3 months Assessment & Plan (09/14/2024 5:58 PM EST): Controlled, no changes will be made, reinforced low sodium diet and exercise as tolerated Assessment & Plan (06/01/2024 12:44 PM EDT): Controlled, continue lisinopril 10mg, no changes will be made Assessment & Plan (03/02/2024 12:47 PM EDT): Controlled, continue lisinopril, continue low sodium diet and exercise Assessment & Plan (01/19/2024 9:52 PM EDT): Controlled, no changes will be made, continue same treatment, new labs will be ordered for guidance of therapy Assessment & Plan (06/09/2023 9:25 AM EDT): Repeated found on 132/84, refers at home he monitors it 2-3 times a week usually less than 130/80, reinforced low sodium diet and exercise as tolerated, bp target <130/0 he will call back if not on that range to increase lisinopril. Assessment & Plan (04/29/2023 11:24 AM EDT): Controlled, previous was 120/71, patient is on lisinopril 10mg, no changes will be made, reinforced low sodium diet and exercise as tolerated Assessment & Plan (01/22/2023 5:58 PM EDT): Today was slightly above target, but he refers at home maintains below 130/80, continue current dose, low sodium diet reinforced Low back pain at multiple sites 12/13/2022 Type 2 diabetes mellitus wit h diabetic polyneuropathy, with long-term current use of insulin 08/17/2014 Assessment & Plan (01/05/2025 12:50 PM EST): No reported episode of hypoglycemia, continue trulicity 4.5mg and lantus 10 units will discontinue metformin, keep low carb/no sugar diet and follow up in 3 months Assessment & Plan (09/14/2024 5:58 PM EST): Conrtolled, will increase trulicity and decrease lantus to 10 units, continue low carb/no sugar diet, follow up in 3 months Assessment & Plan (06/01/2024 12:43 PM EDT): Controlled, lowest result 73 highest 182, continue metformin, lantus and trulicity, will consider in the future increasing trulicity and decreasing/stopping lantus. New labs will be ordered Assessment & Plan (03/02/2024 12:45 PM EDT): Controlled, no episode of hypoglycemia, average in the 100's, no changes will be made, continue low carb/no sugar diet Assessment & Plan (01/19/2024 9:50 PM EDT): Controlled, A1c 6.5%, continue current treatment, no changes will be made Foot exam remarkable for tinea, will provide clotrimazole Assessment & Plan (04/29/2023 11:27 AM EDT): Patient refers that after prednisone his levels have been up the 200's, will increase trulicity to 3mg, labs will be ordered for guidance of therapy Assessment & Plan (01/22/2023 5:59 PM EDT): Controlled, continue trulicity, metformin, and lantus, no changes will be made Encounters Date Type Department Care Team Description 03/08/2025 11:20 AM EDT Office Visit [facility] [address] [place] [address] Barbara Barrett MD Acute cough (Primary Dx); Type 2 diabetes mellitus with diabetic polyneuropathy, with long-term current use of insulin ([facility]); Subacute maxillary sinusitis 03/08/2025 Travel 03/08/2025 Telephone [facility] [address] [place] [address] Gian Reyna MD Nurse Triage 03/05/2025 Refill [facility] [address] [place] [address] Gian Reyna MD 02/25/2025 Refill [facility] [address] [place] [address] Kimberley Andrade MD 02/16/2025 Refill [facility] [address] [place] [address] Gian Reyna MD 01/14/2025 Population Health Risk Score [facility] (C3) Department [address] [id number] Provider, Population Health Generic 01/05/2025 10:45 AM EST Telemedicine [facility] [address] [place] [address] Gian Reyna MD Primary hypertension (Primary Dx); Type 2 diabetes mellitus with diabetic polyneuropathy, with long-term current use of insulin (CMS/HCC) 01/05/2025 Refill [facility] [address] [place] [address] Gian Reyna MD 01/05/2025 Travel 01/04/2025 Telephone [facility] [address] [place] [address] Gian Reyna MD chart prep from Last 3 Months Immunizations Name Administration Dates Next Due Hep A / Hep B 03/23/2018,12/01/2017,10/29/2017 Influenza Injectable Quadriv alant Preservative Free IIV4 MDCK 08/06/2023,08/29/2022,08/02/2018 Influenza injectable quadriv alent preservative free 08/27/2021,07/14/2019 Influenza, High Dose Seasona l, Preservative Free 08/24/2017 Influenza, IIV3, injectable 08/18/2016,1 ,11/01/2014,07/21,08/19/2012,08/27/2011,08/12/2010 ,07/21/2008,08/13/2007,10/14/2006,07/05 Influenza, seasonal, injecta ble, preservative free 09/14/2024 Pfizer Covid-19 Vaccine 12+ 09/14/2024 Pneumococcal Conjugate PCV 20 01/22/2023 Pneumococcal Polysaccharide PPSV23 11/03/2002 RSV Adjuvant 12/17/2023 TD (adult), 2 Lf tetanus tox oid, preservative free, adsorbed 05/17/2024 Td (adult), 5 Lf tetanus tox oid, preservative free, adsorbed 04/15/2014 Tdap 04/15/2014,05/26/2007 Zoster, Recombinant 07/10/2018 Social History Tobacco Use Types Packs/Day Years Used Date Smoking Tobacco: Never Passive Smoke Exposure: Never Smokeless Tobacco: Never Tobacco Cessation:Counseling Given: Not Answered Alcohol Answer Date Recorded Frequency of Alcohol [...] Orientation Straight 09/02/2022 10 :20 AM EDT Last Filed Vital Signs Vital Sign Reading Time Taken Comments Blood Pressure 128/78 03/08/2025 11:33 AM EDT Pulse 70 03/08/2025 11:33 AM EDT Temperature 37 ??C (98.6 ??F) 03/08/2025 11:33 AM EDT Respiratory Rate 20 03/08/2025 11:33 AM EDT Oxygen Saturation 99% 03/08/2025 11:33 AM EDT Inhaled Oxygen Concentration - - Weight 78.2 kg (172 lb 6 oz) 03/08/2025 11:33 AM EDT Height 167.6 cm (5' 6 ) 03/08/2025 11:33 AM EDT Body Mass Index 27.82 03/08/2025 11:33 AM EDT Plan of Treatment Upcoming Encounters Date Type Department Care Team (Late st Contact Info) Description 04/11/2025 10:30 AM EDT Office Visit [facility] [address] [place] [address] Gian Reyna MD [address] [place], [place] [phone] Health Maintenance Due Date Last Done Comments CT Colonography 1963 FIT DNA/Cologuard 1963 FIT 1965 FOBT 1965 Sigmoidoscopy 1965 Zoster Vaccines (2 of 2) 09/04/2018 07/10/2018 Hepatitis A Vaccines (4 of 4 - Hep A Twinrix risk 4-dose series) 10/29/2018 03/23/2018, 12/01/2017, 10/29/2017 Diabetes: Foot Exam 12/17/2024 12/17/2023, 12/17/2023, 12/17/2023, Additional history exists Diabetes: Hemoglobin A1C 03/14/2025 024, 06/17/2024, 12/17/2023, Additional history exists Depression Screening 06/01/2025 06/01/2024, 06/01/20 SDOH Screening 06/01/2025 06/01/2024 Diabetes: Urine Protein Screening 06/17/2025 06/17/2024, 04/30/2023, 03/04/2022, Additional history exists Lipid Panel 06/17/2025 06/17/2024, 12/04, 04/30/2023, Additional history exists Alcohol/Substance Use Screening 09/14/2025 09/14/2024 Tobacco Screening 03/08/2026 03/08/2025 Eye Exam 10/19/2026 10/19/2024 Colonoscopy 10/26/2028 Colorectal Cancer Screening 10/26/2028 DTaP/Tdap/Td Vaccines (5 - Td or Tdap) 05/17/2034 05/17/2024, 04/15/2014, 04/15/2014, Additional history exists Hepatitis B Vaccines Completed 03/23/2018, 12/01/2017, 10/29/2017 HIV Screening Completed 11/13/2020 Pneumococcal Vaccine: 50+ Years Completed 01/22/2023, 11/03/2002 RSV Patients and Patients Aged 60 years or older Completed 12/17/2023 COVID-19 Vaccine Completed 09/14/2024, 02/2023, 10/12/2022, Additional history exists Influenza Vaccine Completed 09/14/2024, , 08/29/2022, Additional history exists HIB Vaccines Aged Out No longer eligi ble based on patient's age to complete this topic HPV Vaccines Aged Out No longer eligi ble based on patient's age to complete this topic IPV Vaccines Aged Out No longer eligi ble based on patient's age to complete this topic Meningococcal Vaccine Aged Out No coleman dinorah eligible based on patient's age to complete this topic RSV under 20 months Aged Out No longe r eligible based on patient's age to complete this topic Rotavirus Vaccines Aged Out No longer eligible based on patient's age to complete this topic Procedures Procedure Name Priority Date/Time Associated Diagnosis Comments POCT RAPID COVID ANTIGEN Routine 03/08/2025 11:45 AM EDT Acute cough POCT INFLUENZA B Routine 03/08/2025 11:4 4 AM EDT Acute cough POCT INFLUENZA A Routine 03/08/2025 11:4 3 AM EDT Acute cough RESPIRATORY VIRAL PANEL PCR Routine 03/08/2025 11:20 AM EDT HM DIABETES EYE EXAM Routine 10/19/2024 9:56 AM EST POCT GLYCATED HEMOGLOBIN, TOTAL Routine 09/14/2024 10:43 AM EST Type 2 diabetes mellitus with diabetic polyneuropathy, with long-term current use of insulin ([facility]) ALBUMIN, RANDOM URINE W/CREATININE Routine 06/17/2024 8:11 AM EDT Type 2 diabetes mellitus with diabetic polyneuropathy, with long-term current use of insulin ([facility]) LIPID PANEL, STANDARD Routine 06/17/2024 12:00 AM EDT Type 2 diabetes mellitus with diabetic polyneuropathy, with long-term current use of insulin ([facility]) HIV 1/2 ANTIGEN/ANTIBODY, FOURTH GENERATION W/RFL Routine 11/13/2020 9:28 AM EST from Last 3 Months or Most Recently Relevant to Health Maintenance Results * POCT Rapid Covid-19 BinaxNOW (03/08/2025 11:45 AM EDT) [facility] Rapid COVID Ag Negative QC Media Lot # [id number] Lot# Expiration Date ,026 Swab 03/08/2025 11:4 5 AM EDT Barbara Barrett MD POINT OF CARE TEST ENTER/EDIT ORDERABLES Final Result * POCT Rapid Influenza B OSOM (03/08/2025 11:44 AM EDT) [facility] Rapid Influenza B Ag Negative Negative, Indeterminate QC Media Lot # [id number] Lot# Expiration Date , Swab 03/08/2025 11:4 4 AM EDT Barbara Barrett MD POINT OF CARE TEST ENTER/EDIT ORDERABLES Final Result * POCT Rapid Influenza A OSOM (03/08/2025 11:43 AM EDT) [facility] Rapid Influenza A Ag Negative Negative, Indeterminate QC Media Lot # [id number] Lot# Expiration Date , Swab Nasopharyngeal structure / Unknown 03/08/2025 11:43 AM EDT Barbara Barrett MD POINT OF CARE TEST ENTER/EDIT ORDERABLES Final Result * Respiratory Viral Panel PCR (03/08/2025 11:20 AM EDT) [facility] Adenovirus PCR Not Detected Not Detect. [facility] Bordetella pertussis PCR Not Detected Not Detect. [facility] Comment:Interpret results wi th caution. If B. pertussis isspecifically suspected, additional testing using analternate method is recommended. Bordetella parapertussis PCR Not Detected Not Detect. [facility] Chlamydia pneumoniae PCR Not Detected Not Detect. [facility] Coronavirus 229E PCR Not Detected Not Detect. [facility] Coronavirus HKU1 PCR Not Detected Not Detect. [facility] Coronavirus NL63 PCR Not Detected Not Detect. [facility] Coronavirus OC43 PCR Not Detected Not Detect. [facility] SARS-CoV-2 PCR Not Detected Not Detect. [facility] Comment:SARS-CoV-2 not detec stephanie by real-time RT-PCR.Note: If clinical suspicion for Sars-CoV-2 is high, continueto maintain precautions and consider repeat testing.Test results should be interpreted in the context ofclinical findings and other laboratory data.Rare polymorphisms exist that could lead to false-negativeor false-positive results. If results do not match theclinical findings, additional testing should be considered.Results reported to KARLA CASON.This test has been authorized by the FDA under the EmergencyUse Authorization (EUA) for use by authorized laboratories. Influenza A PCR Not Detected Not Detect. [facility] Influenza A Subtype H1 Not Detected Not Detect. [facility] Influenza A H1-2009 PCR Not Detected Not Detect. [facility] Influenza A Subtype H3 Not Detected Not Detect. [facility] Influenza B PCR Not Detected Not Detect. [facility] Human metapneumovirus PCR Not Detected Not Detect. [facility] Rhino/Enterovirus PCR Not Detected Not Detect. [facility] Mycoplasma pneumoniae PCR Not Detected Not Detect. [facility] Parainfluenza 1 PCR Not Detected Not Detect. [facility] Parainfluenza 2 PCR Not Detected Not Detect. [facility] Parainfluenza 3 PCR Not Detected Not Detect. [facility] Parainfluenza 4 PCR Not Detected Not Detect. [facility] RSV PCR Not Detected Not Detect. [facility] Resp Panel NA Note See Note H [facility] Comment:All results must be correlated with clinical findings.Negative results should not be used as the sole basis fordiagnosis, treatment, or other management decisions.A negative result does not exclude the possibility of viralor bacterial infection. Negative results may occur from thepresence of sequence variants in the region targeted by theassay, the presence of inhibitors, an infection caused by anorganism not detected by the panel, or lower respiratorytract infections that are not detected by a nasopharyngealswab specimen. Test results may also be affected byconcurrent antiviral/antibacterial therapy or levels oforganism in the specimen that are below the limit ofdetection for this test.This assay is performed by Multiplexed PCR, utilizing theAdvanced Oncotherapy Film Array. 03/08/2025 11:2 0 AM EDT 03/08/2025 5:24 PM EDT us Barbara Barrett MD LAB BLOOD ORDERABLES Final Re sult Performing Organization Address [facility]/ZIP Co de Phone Number [facility] [address] [place] [phone] * Diabetes Eye Exam (10/19/2024 9:56 AM EST) Judah Provider HEALTH MAINTENANCE Final Result * (ABNORMAL) POCT HGB A1C (09/14/2024 10:43 AM EST) Hemoglobin A1C 6.1(A) 4.0 - 6.0 % QC Media Lot # [id number] Lot# Expiration Date Blood 09/14/2024 10:4 3 AM EST Gian Maradiaga MD POINT OF CARE TEST ENTER/EDIT ORDERABLES Final Result * Albumin, Random Urine W/Creatinine (06/17/2024 8:11 AM EDT) Creatinine, Urine 380.48 mg/dL [facility] Microalbumin Urine 25.0 mg/L [facility] Microalbum Creatinine Ratio Ur 6.5 <30 ug/mg cr [facility] Comment:Albumin/Creatinine R atio Reference Ranges: Normal: < 30 ug/mg creatinine Microalbuminuria: 30 - 300 ug/mg creatinineClinical Albuminuria: > 300 ug/mg creatinine Urine (Urine, Random) 06/17/2024 8:11 AM EDT 06/17/2024 2:01 PM EDT Gian Maradiaga MD LAB URINE ORDERABL ES Final Result Performing Organization Address [facility] Co de Phone Number [facility] [address] [place] [address] [phone] * Lipid Panel, Standard (06/17/2024 12:00 AM EDT) Triglycerides 60 <150 mg/dL [facility] Comment:Desirable Triglyceri de: less than 150 mg/dLBorderline High Triglyceride 150-199 mg/dLHigh Triglyceride: 200-499 mg/dLVery High Triglyceride: greater than or equal to 5OO mg/dL Cholesterol 115 <200 mg/dL [facility] Comment:Desirable Cholestero l: less than 200 mg/dLBorderline High Cholesterol: 200-239 mg/dLHigh Cholesterol: greater than 239 mg/dL LDL Cholesterol Calculated 57 <100 mg/dL [facility] Comment:Desirable LDL: less than 100 mg/dLNear Optimal/Above Optimal LDL: 110- 129 mg/dLBorderline High LDL: 130-159 mg/dLHigh LDL: 160-189 mg/dLVery High LDL: greater than or equal to 190 mg/dL HDL Cholesterol 46 >40 mg/dL [facility] Comment:Desirable HDL: great er than 40 mg/dL Note: This HDL assay may give artificially low results in patients with liver disease. Blood Venous blood specimen / Unknown 06/17/2024 06/17/2024 us Gian Maradiaga MD LAB BLOOD ORDERABL ES Final Result [facility] [address] [place] [address] [phone] * HIV 1/2 ANTIGEN/ANTIBODY,FOURTH GENERATION W/RFL (11/13/2020 9:28 AM EST) HIV-1/2 ANTIGEN AND ANTIBODIES, 4TH GENERATION W/ REFLEX NON-REACT OCTAVIO NON-REACT OCTAVIO [facility] Comment: HIV-1 antigen and HIV-1/HIV-2 antibodies were not detected. There is no laboratory evidence of HIV infection. ?? PLEASE NOTE: This information has been disclosed to you from records whose confidentiality may be protected by state law. ??If your state requires such protection, then the state law prohibits you from making any further disclosure of the information without the specific written consent of the person to whom it pertains, or as otherwise permitted by law. A general authorization for the release of medical or other information is NOT sufficient for this purpose. ? For additional information please refer to http://[email or web address].[facility]/faq/EEK057 (This link is being provided for informational/ educational purposes only.) ? The performance of this assay has not been clinically validated in patients less than 2 years old. ?? 11/13/2020 9:28 AM EST Gian Maradiaga MD LAB BLOOD ORDERABL ES Final Result Performing Organization Address City/State/[facility] [place] Phone Number [facility] Anywhere [address] from Last 3 Months or Most Recently Relevant to Health Maintenance [facility] Care Teams Testing And Regulating Chief Relationship Specialty Start Date End Date MarquezGian Collins MD [address] [place] [address] KARLA Teresa [phone] PCP - General Internal Medicine 11/16/20
--- OUTSIDE RECORDS SUMMARY | 2025-03-15 17:55 | XMS_ITS | Encounter Summary ---
Author Organization [employer] Address [address] [facility] [address] [place] [address] Care Team Providers Care Student Affairs Vice President Name Role Phone Gian Reyna MD Primary Care Prov ider Encounter Details Date Type Department Care Team (Late st Contact Info) Description 11/11/2024 Orders Only [facility] [address], [place] [id number] Provider, MD Judah Social History Tobacco Use Types Packs/Day Years [...] Upcoming Encounters Date Type Department Care Team ([facility] st Contact Info) Description 04/11/2025 10:30 AM EDT Office Visit [facility] [address] [place] [address] MarquezGian Collins MD [address] [place] [address] documented as of this encounter Procedures Procedure Name Priority Date/Time Associated Diagnosis Comments RESPIRATORY VIRAL PANEL PCR Routine 03/08/2025 11:20 AM EDT HM DIABETES EYE EXAM Routine 10/19/2024 9:56 AM EST documented in this encounter Results * Respiratory Viral Panel PCR (03/08/2025 11:20 AM EDT) Adenovirus PCR Not Detected Not Detect. [facility] Bordetella pertussis PCR Not Detected Not Detect. [facility] Comment:Interpret results wi th caution. If B. pertussis isspecifically suspected, additional testing using analternate method is recommended. Bordetella parapertussis PCR Not Detected Not Detect. [facility] Chlamydia pneumoniae PCR Not Detected Not Detect. [facility] Coronavirus 229E PCR Not Detected Not Detect. [facility] Coronavirus HKU1 PCR Not Detected Not Detect. [facility] Coronavirus NL63 PCR Not Detected Not Detect. [facility] Coronavirus OC43 PCR Not Detected Not Detect. [facility] SARS-CoV-2 PCR Not Detected Not Detect. [facility] Comment:SARS-CoV-2 not detec stephanie by real-time [...] Influenza A PCR Not Detected Not Detect. [facility] Influenza A Subtype H1 Not Detected Not Detect. [facility] Influenza A H1-2009 PCR Not Detected Not Detect. [facility] Influenza A Subtype H3 Not Detected Not Detect. [facility] Influenza B PCR Not Detected Not Detect. [facility] Human metapneumovirus PCR Not Detected Not Detect. [facility] Rhino/Enterovirus PCR Not Detected Not Detect. [facility] Mycoplasma pneumoniae PCR Not Detected Not Detect. [facility] Parainfluenza 1 PCR Not Detected Not Detect. [facility] Parainfluenza 2 PCR Not Detected Not Detect. [facility] Parainfluenza 3 PCR Not Detected Not Detect. [facility] Parainfluenza 4 PCR Not Detected Not Detect. [facility] RSV PCR Not Detected Not Detect. [facility] Resp Panel NA Note See Note [facility] Comment:All results must be correlated [...] assay is performed by Multiplexed PCR, utilizing [employer] Film Array. 03/08/2025 11:2 0 AM EDT 03/08/2025 5:24 PM EDT us Barbara Barrett MD LAB BLOOD ORDERABLES Final Re sult [facility] [address] [place] [address] [phone] * Diabetes Eye Exam (10/19/2024 9:56 AM EST) us Historical Provider HEALTH MAINTENANCE Final Result documented in this encounter Visit Diagnoses Not on filedocumented in this encounter Additional Health Concerns Assessment Noted Time PHQ-9 Depression Total Score: 0 06/01/20 24 9:15 AM EDT documented as of this encounter Care Teams Student Affairs Vice President Relationship Specialty Start Date End Date Gian Reyna MD [address] [place] [phone] PCP - General Internal Medicine 11/16/20 documented as of this encounter
[2025-03-15 18:06] LABS: MANUAL DIFF FLAG NO
[2025-03-15 18:11] LABS: Basophils Percent Auto 0.3 % (0-2); Eosinophils Absolute Auto 0.1 X10*3/uL (0.0-0.4); Eosinophils Percent Auto 0.5 % (0-4); Hematocrit 40.6 % (42.0-52.0); Hemoglobin 13.8 g/dl (14.0-18.0); Imm Gran Abs Auto 0.04 X10*3/uL (0.00-0.03); Imm Gran Pct Auto 0.4 % (0.0-0.4); Lymphocytes Absolute Auto 0.4 X10*3/uL (1.2-4.9); Lymphocytes Percent Auto 3.7 % (20-40); Mean Corpuscular Hemoglobin 32.2 pg (27.0-33.0); Mean Corpuscular Volume 94.6 fL (80.0-98.0); Monocytes Absolute Auto 0.7 X10*3/uL (0.1-1.2); Monocytes Percent Auto 6.4 % (2-11); Neutrophils Absolute Auto 9.6 x10*3/uL (2.0-8.3); Neutrophils Percent Auto 88.7 % (45-73); Platelet Count 209 X10*3/uL (160-400); Red Blood Count 4.29 X10*6/uL (4.60-5.80); Red Cell Distribution Width 13.1 % (11.0-16.0); White Blood Count 10.8 X10*3/uL (4.8-10.8)
[2025-03-15 18:23] LABS: Albumin Level 4.8 g/dL (3.5-5.0); Alkaline Phosphatase 73 U/L (39-117); Anion Gap 19 (12-20); Aspartate Amino Transferase 35 U/L (5-37); Bilirubin Total 1.2 mg/dL (0.0-1.0); Blood Urea Nitrogen 35 mg/dL (9-16); Calcium 9.6 mg/dL (8.4-10.2); Carbon Dioxide 20 mmol/L (22-29); Chloride 106 mmol/L (96-108); Creatinine Clr Calc Pharmacy 69.3; Estimated Glomerular Filt Rate > 60; Glucose Random 154 mg/dL (60-115); Lipase 22 U/L (8-78); Potassium 4.1 mmol/L (3.3-5.1); Sodium 141 mmol/L (135-145); Total Protein 7.7 g/dL (6.5-8.0)
[2025-03-15] MEDS: Loperamide HCl 2 MG CAPSULE 4 MG PO (18:39)
[2025-03-15] MEDS: ondansetron HCL 4 MG/2 ML VIAL IVPUSH (18:40)
--- NOTE | 2025-03-15 18:40 | ED_ITS ---
HPI - Nausea/Vomiting/Diarrhea General Chief complaint: Nausea/Vomiting/Diarrhea Stated complaint: Vomiting,diarrhea Time Seen by Provider: 03/15/25 17:42 Source: patient and EMS Mode of arrival: EMS Limitations: no limitations History of Present Illness ED Provider: Dr. Blanca Galvin HPI Narrative: patient comes to the emergency room complaining of nausea vomiting and diarrhea that started 5 hours ago. Patient states that he has vomited 4-6 times, same with diarrhea. Patient has not taking any medications. Patient states that this morning he was feeling completely normal. Patient denies significant abdominal pain. Patient denies flank pain. Related Data Home Medications ?Medication ?Instructions ?Recorded ?Confirmed aspirin 81 mg tablet,delayed 81 mg PO DAILY 07/30/21 09/24/23 release atorvastatin 10 mg tablet 10 mg PO BEDTIME 07/30/21 09/24/23 lisinopril 10 mg tablet 10 mg PO DAILY 07/30/21 09/24/23 metformin 500 mg tablet 500 mg PO BID 07/30/21 09/24/23 insulin glargine 100 unit/mL (3 25 unit subcut BEDTIME 10/09/22 09/24/23 mL) subcutaneous pen (Lantus Solostar U-100 Insulin) lancets 28 gauge (FreeStyle #100 ea 10/09/22 07/08/23 Lancets) pen needle, diabetic 31 gauge x #1,200 ea 10/09/22 07/08/23/16 (BD Ultra-Fine Short Pen Needle) allopurinol 300 mg tablet 300 mg PO DAILY 07/08/23 09/24/23 dulaglutide 3 mg/0.5 mL 3 mg subcut QWEEK 07/08/23 09/24/23 subcutaneous pen injector ([facility]) blood sugar diagnostic (Prodigy No #10 ea 04/14/24 Coding strips) cetirizine 10 mg tablet 10 mg PO DAILY 04/14/24 lorazepam 0.5 mg tablet 0.5 mg PO QAM 04/14/24 Previous Rx's ?Medication ?Instructions ?Recorded pantoprazole 40 mg tablet,delayed 40 mg PO DAILY #90 tabs 04/14/24 release sennosides 8.6 mg tablet (Natural 17.2 mg (2 x 8.6 mg) PO BEDTIME 04/14/24 Senna Laxative) constipation #180 tabs loperamide 2 mg tablet 2 mg PO Q4H PRN loose stool #20 03/15/25 tabs ondansetron HCl 4 mg tablet 4 mg PO Q6H PRN nausea and 03/15/25 vomiting #14 tabs Allergies Allergy/AdvReac Type Severity Reaction Status Date / Time No Known Allergies Allergy Verified 03/15/25 17:29 Review of Systems 2 Review of Systems: Constitutional : No Weight loss, No Fever, No Chills, No Night Sweats, No Fatigue, No Malaise ENT/Mouth : No Hearing loss, No Ear Pain, No Nasal Congestion, No Sinus Pain, No Hoarseness, No sore throat, No Rhinorrhea, No Swallowing Difficulty Eyes: No Eye Pain, No Swelling, No Redness, No Foreign Body, No Discharge, No Vision Changes Cardiovascular : No Chest Pain, No SOB, No Dyspnea on Exertion, No Orthopnea, No Edema, No Palpitations Respiratory : No Cough, No Sputum, No Wheezing, No Smoke Exposure, No Dyspnea Gastrointestinal : Complaining of nausea vomiting and diarrhea. No Constipation, No abdominal Pain, No Hematochezia, No Melena Genitourinary : no irregular bleeding, No Dysuria, No Urinary Frequency, No Hematuria, No Urinary Incontinence, No Urgency, No Flank Pain, No Urinary Flow Changes, No Hesitancy Musculoskeletal : No joint pain, No Myalgias, No Joint Swelling Skin : No Skin Lesions, No rash Neuro : No Weakness, No Numbness, No Paresthesias, No Loss of Consciousness, No Dizziness, No Headache Psych : No Anxiety/Panic, No Depression, No SI/HI/AH/VH, No Social Issues, Heme/Lymph: No Bruising, No Bleeding,No Lymphadenopathy Endocrine : No Polyuria, No Polydipsia, No Temperature Intolerance [facility] Past Medical History Medical History Gout Hernia Diabetes Surgical History History of bilateral inguinal hernia repair H/O colonoscopy History of eye surgery Family History Family History Father Diabetic acetonemia Eye disease Mother Diabetic acetonemia Eye disease Sister Thyroid activity decreased Sister Thyroid cancer Social History Social History (Reviewed 09/23/24 @ 09:00 by DYLLAN Alatorre Alcohol intake: never Patient Tobacco Use Status: Former Tobacco user Smoked in Last 30 Days: No Use of substances other than those prescribed or required for medical reasons: No Advance Directives: No Advance Directives Information Provided: No Do you have a plan to hurt others: No Plan Physical Exam 2 Vital Signs: Vital Signs: Last Vital Signs Temp 99.1 F 03/15/25 17:28 Pulse 111 H 03/15/25 19:11 Resp 16 03/15/25 19:11 BP 124/71 03/15/25 19:11 Pulse Ox 96 03/15/25 19:11 O2 Del Method Room Air 03/15/25 19:11 BMI result Body Mass Index 27.1 Const: Other: Appearance: Alert. Oriented X3. No acute distress. Eyes: No obvious external abnormalities, patient is legally blind ENT: Pharynx normal. patient's oral mucosa slightly dry Neck: Normal inspection. Neck supple. No lymph nodes noted. No crepitus CVS: Normal heart rate and rhythm. Pulses normal. Normal S1 and S2 Respiratory: No respiratory distress. Breath sounds normal. No Wheezing. No rales Abdomen: Soft and nontender. No rigidity. No distention. Skin: Skin warm and dry. Normal skin color. Normal skin turgor. Extremities: No lower extremity edema. No Lacerations. No Rash Neuro: Oriented X 3. No motor deficit. No sensory deficit. Moving all extremities. No slurred speech. CN 2 through 12 grossly intact Psych: calm, cooperative, normal affect Course Course Course Narrative: patient receiving IV fluids, Zofran and loperamide patient's physical exam reassuring, no tenderness on palpation, soft abdomen. Medications Administered Discontinued Medications Generic Name Dose Route Start Last Admin Trade Name Freq PRN Reason Stop Dose Admin Lactated Ringer's 1,000 mls @ 999 mls/hr 03/15/25 18:45 03/15/25 19:22 Lr IV 03/15/25 19:45 999 mls/hr .Q1H1M RANCHO Administration Loperamide HCl 4 mg 03/15/25 18:32 03/15/25 18:39 Loperamide Hcl 2 Mg Capsule PO 03/15/25 18:33 4 mg ONCE ONE Administration Ondansetron HCl 4 mg 03/15/25 18:32 03/15/25 18:40 Ondansetron Hcl 4 Mg/2 Ml Vial IVPUSH 03/15/25 18:33 4 mg ONCE ONE Administration Medical Decision Making Medical Decision Making [facility] Narrative: My interpretation of labs: Patient's hematology and chemistry at baseline, no significant abnormality. Total bilirubin 1.2, patient does not have any epigastric or right upper quadrant pain. Rest of LFTs within normal limits. Lipase normal . Urinalysis negative for UTI. Patient likely has viral gastroenteritis patient has not had any episodes of vomiting nausea or diarrhea here in the emergency room. Differential Diagnosis Differential Diagnoses: The differential diagnosis associated with the presentation includes ( gastroenteritis, colitis, viral illness) Admission/Observation Consideration of admission/observation: Escalation of care including admission/observation considered ( given patient's presentation and symptoms, observation) Lab Data [facility] Lab Attestation statement: I reviewed the patient's lab results. 03/15/25 18:01 03/15/25 18:01 Labs: Lab Results 03/15/25 03/15/25 03/15/25 Range/Units 18:01 19:01 19:13 WBC 10.8 (4.8-10.8) X10*3/uL RBC 4.29 L (4.60-5.80) X10*6/uL Hgb 13.8 L (14.0-18.0) g/dl Hct 40.6 L (42.0-52.0) % MCV 94.6 (80.0-98.0) fL MCH 32.2 (27.0-33.0) pg MCHC 34.0 (31.0-36.0) g/dl RDW 13.1 (11.0-16.0) % Plt Count 209 (160-400) X10*3/uL MPV 10.0 (9.4-12.4) fL Immature Gran % (Auto) 0.4 (0.0-0.4) % Neut % (Auto) 88.7 H (45-73) % Lymph % (Auto) 3.7 L (20-40) % [place] % (Auto) 6.4 (2-11) % Eos % (Auto) 0.5 (0-4) % Baso % (Auto) 0.3 (0-2) % Lymph # (Auto) 0.4 L (1.2-4.9) X10*3/uL [place] # (Auto) 0.7 (0.1-1.2) X10*3/uL Eos # (Auto) 0.1 (0.0-0.4) X10*3/uL Baso # (Auto) 0.0 (0.0-0.2) X10*3/uL Abs Immat Gran (auto) 0.04 H (0.00-0.03) X10*3/uL Absolute Neuts (auto) 9.6 H (2.0-8.3) x10*3/uL Absolute Nucleated RBC 0.000 (0.0-0.012) X10*3/uL Nucleated RBC % (auto) 0.0 (0.0-0.2) /100WBC Sodium 141 (135-145) mmol/L Potassium 4.1 (3.3-5.1) mmol/L Chloride 106 (96-108) mmol/L Carbon Dioxide 20 L (22-29) mmol/L Anion Gap 19 (12-20) BUN 35 H (9-16) mg/dL Creatinine 1.01 (0.5-1.4) mg/dL Estim Creat Clear Calc 69.3 Estimated GFR > 60 POC Glucose 154 H (60-115) mg/dL Random Glucose 154 H (60-115) mg/dL Calcium 9.6 (8.4-10.2) mg/dL Total Bilirubin 1.2 H (0.0-1.0) mg/dL AST 35 (5-37) U/L ALT 32 (0-40) U/L Alkaline Phosphatase 73 (39-117) U/L Total Protein 7.7 (6.5-8.0) g/dL Albumin 4.8 (3.5-5.0) g/dL Lipase 22 (8-78) U/L Urine Color Yellow Urine Appearance Clear Urine pH 5.0 (5.0-9.0) Ur Specific [place] >= 1.030 H (1.005-1.025) Urine Protein Trace (Neg-Trace) mg/dL Urine Glucose (UA) Negative (Negative) mg/dL Urine Ketones 80 (Negative) mg/dL Urine Blood Negative (Negative) Urine Nitrite Negative (Negative) Ur Leukocyte Esterase Negative (Negative) Critical Care Time Critical Care Time Critical Care Time: Yes Total Critical Care Time: 35 Attestation: I have personally provided critical care time. Time includes review of lab data, radiology results, discussion with consultants, and monitoring for potential decompensation. Intervention performed as documented. Discharge Plan Discharge Clinical Impression: Nausea vomiting and diarrhea, Acute dehydration Patient Disposition: Home, Self-Care Instructions: Acute Nausea and Vomiting (DC), Acute Diarrhea (ED) Additional Instructions: Please follow-up with your primary care physician tomorrow. If you have any worsening or new symptoms, please return to the emergency room or call 911 Prescriptions: New loperamide 2 mg tablet 2 mg PO Q4H PRN (Reason: loose stool) Qty: 20 0RF Rx Instructions: administer after each loose stool until symptoms controlled; do not exceed 8 mg per 24 hrs ondansetron HCl 4 mg tablet 4 mg PO Q6H PRN (Reason: nausea and vomiting) Qty: 14 0RF No Action lisinopril 10 mg tablet 10 mg PO DAILY metformin 500 mg tablet 500 mg PO BID atorvastatin 10 mg tablet 10 mg PO BEDTIME aspirin 81 mg tablet,delayed release (DR/EC) 81 mg PO DAILY insulin glargine [Lantus Solostar U-100 Insulin] 100 unit/mL (3 mL) insulin pen 25 unit subcut BEDTIME (DME) pen needle, diabetic [BD Ultra-Fine Short Pen Needle] 31 gauge x 5/16 needle See Rx Instructions .ROUTE DAILY Qty: 1200 Rx Instructions: As directed (DME) lancets [FreeStyle Lancets] 28 gauge misc See Rx Instructions .ROUTE BID Qty: 100 Rx Instructions: As directed allopurinol 300 mg tablet 300 mg PO DAILY Trulicity 3 mg/0.5 mL pen injector 3 mg subcut QWEEK (DME) Prodigy No Coding Strip See Rx Instructions .ROUTE TID Qty: 10 Rx Instructions: As directed cetirizine 10 mg tablet 10 mg PO DAILY lorazepam 0.5 mg tablet 0.5 mg PO QAM sennosides [Natural Senna Laxative] 8.6 mg tablet 17.2 mg PO BEDTIME Qty: 180 3RF pantoprazole 40 mg tablet,delayed release (DR/EC) 40 mg PO DAILY Qty: 90 3RF Rx Instructions: take one tablet half an hour before breakfast Print Language: Sri Lankan
[2025-03-15 19:09] LABS: Alanine Aminotransferase 32 U/L (0-40)
[2025-03-15 19:11] VITALS: BP 124/71; PULSE 111; RESP 16; O2SAT 96
[2025-03-15 19:20] LABS: Glucose, Whole Blood 154 mg/dL (60-115)
[2025-03-15 19:22] LABS: Appearance Urine Clear; Color Urine Yellow; Glucose Urine UA Negative (Negative); Leukocyte Esterase Urine Negative (Negative); Nitrite Urine Negative (Negative); Specific Gravity - Urine >= 1.030 (1.005-1.025); Urine Blood Negative (Negative); Urine Ketones 80 mg/dL (Negative); Urine Protein Trace mg/dL (Neg-Trace)
[2025-03-15] MEDS: Lactated Ringers 1,000 ML 999 ML IV (19:22)
[2025-03-15 22:04] VITALS: BP 102/56; PULSE 98; RESP 15; TEMP 36.6; O2SAT 95
== END 2025-03-15 22:05 | disposition home or self-care (01) ==
PROVIDERS: Emergency Provider Emergency Medicine
DX: R11.2 Nausea with vomiting, unspecified (principal); R19.7 Diarrhea, unspecified; E86.0 Dehydration; R10.11 Right upper quadrant pain; Z87.891 Personal history of nicotine dependence; Z79.84 Long term (current) use of oral hypoglycemic drugs; Z79.4 Long term (current) use of insulin; Z79.82 Long term (current) use of aspirin; Z79.899 Other long term (current) drug therapy
CPT/HCPCS: 36415; 80053; 81003; 82947; 83690; 85025; 93005; 96361; 96374; 99284; J2405; J7120

== ENCOUNTER → 2025-03-15 17:30 | Outpatient (BNV) | payer MEDICAID, SELFPAY | PROVIDERS: Emergency Provider Emergency Medicine; Visit Provider Internal Medicine Cardiovascular Disease | DX: R00.0 Tachycardia, unspecified (principal) | CPT/HCPCS: 93010 ==

== ENCOUNTER 2025-04-12 09:52 | Outpatient (REF) | payer MEDICAID, SELFPAY ==
--- OUTSIDE RECORDS SUMMARY | 2025-04-12 11:09 | XMS_ITS | Clinical Summary ---
Author Organization [facility] Address [address] [place] [address] Care Team Providers Care Expediter Clerk Name Role Phone Justice Rahman RD Primary Care Provider [phone] Source Comments PLEASE NOTE, if this patient is a minor, it may be UNLAWFUL to discuss sensitive information that is contained in these records (such as FAMILY PLANNING, MENTAL HEALTH or SUBSTANCE ABUSE) with the minor patient's parent or other person without the patient's specific authorization.[facility] Active Problems Problem Noted Date Diagnosed Date Diabetes type 2, controlled ([facility]) 08/17/2014 Social History Tobacco Use Types Packs/Day Years Used Date Smoking Tobacco: Never Assessed Social Connections Answer Date Recorded Social Connections and Isolation 0 06/26/2019 Financial Resource Strain Answer Date R ecorded Financial Resource Strain 0 2018 Stress Answer Date Recorded Stress 0 06/26/2019 Physical Activity Answer Date Recorded Physical Activity 0 06/26/2019 Food Insecurity Answer Date Recorded Food 0 06/26/2019 Transportation Needs Answer Date Record ed Transportation 0 06/26/2019 Housing Stability Answer Date Recorded Housing 0 06/26/2019 Safety and Environment Answer Date Levi rded Safety 0 06/26/2019 Utilities Answer Date Recorded Utilities 0 06/26/2019 Employment Answer Date Recorded Employment 0 06/26/2019 Sex and Gender Information Value Date Recorded Sex Assigned at Not on file Legal Sex Male 11:36 AM PDT Gender Identity Not on file Sexual Orientation Not on file Last Filed Vital Signs Vital Sign Reading Time Taken Comments Blood Pressure - - Pulse - - Temperature - - Respiratory Rate - - Oxygen Saturation - - Inhaled Oxygen Concentration - - Weight 83.9 kg (185 lb) 03/24/2017 10:50 AM EDT Height 162.6 cm (5' 4 ) 03/24/2017 10:50 AM EDT Body Mass Index 31.76 03/24/2017 10:50 AM EDT Plan of Treatment Not on file Insurance [facility] PLAN Member Subscriber Plan / Payer (Ef fective 2013-Present) Name:Kemar Farfan Relation to Subscriber:Self Name:Kemar Farfan Payer ID:[id number] Group ID:[id number] Type:Medicaid Address: [facility] [address] [place] [address] Care Teams Expediter Clerk Relationship Specialty Start Date End Date Justice Rahman RD [address] [place] [address] PCP - General Nutrition 08/17/14
[2025-04-12 14:23] LABS: MANUAL DIFF FLAG NO
[2025-04-12 14:25] LABS: Basophils Absolute Auto 0.1 X10*3/uL (0.0-0.2); Basophils Percent Auto 1.4 % (0-2); Eosinophils Absolute Auto 0.3 X10*3/uL (0.0-0.4); Eosinophils Percent Auto 6.6 % (0-4); Hematocrit 37.3 % (42.0-52.0); Hemoglobin 12.2 g/dl (14.0-18.0); Imm Gran Abs Auto 0.01 X10*3/uL (0.00-0.03); Imm Gran Pct Auto 0.2 % (0.0-0.4); Lymphocytes Absolute Auto 1.5 X10*3/uL (1.2-4.9); Lymphocytes Percent Auto 30.6 % (20-40); Mean Corpuscular HGB Conc 32.7 g/dl (31.0-36.0); Mean Corpuscular Hemoglobin 31.9 pg (27.0-33.0); Mean Corpuscular Volume 97.4 fL (80.0-98.0); Mean Platelet Volume 10.5 fL (9.4-12.4); Monocytes Absolute Auto 0.5 X10*3/uL (0.1-1.2); Monocytes Percent Auto 10.9 % (2-11); NRBC Pct Auto 0.4 /100WBC (0.0-0.2); Neutrophils Absolute Auto 2.5 x10*3/uL (2.0-8.3); Neutrophils Percent Auto 50.3 % (45-73); Platelet Count 226 X10*3/uL (160-400); Red Blood Count 3.83 X10*6/uL (4.60-5.80); Red Cell Distribution Width 13.6 % (11.0-16.0); White Blood Count 4.9 X10*3/uL (4.8-10.8)
[2025-04-12 14:49] LABS: Alanine Aminotransferase 27 U/L (0-40); Albumin Level 4.6 g/dL (3.5-5.0); Alkaline Phosphatase 60 U/L (39-117); Anion Gap 11 (12-20); Aspartate Amino Transferase 26 U/L (5-37); Bilirubin Total 0.5 mg/dL (0.0-1.0); Blood Urea Nitrogen 22 mg/dL (9-16); Calcium 9.4 mg/dL (8.4-10.2); Carbon Dioxide 27 mmol/L (22-29); Chloride 109 mmol/L (96-108); Cholesterol 96 mg/dL (<200); Estimated Glomerular Filt Rate > 60; Glucose Random 126 mg/dL (60-115); HDL Cholesterol 40 mg/dL (>40); LDL Cholesterol Calculated 46 mg/dL (<100); Potassium 4.4 mmol/L (3.3-5.1); Sodium 143 mmol/L (135-145); Total Protein 6.8 g/dL (6.5-8.0); Triglycerides 51 mg/dL (<150); Uric Acid 4.3 mg/dL (3.4-7.0)
[2025-04-12 15:31] LABS: Creatinine Urine 214.41 mg/dL; Microalbum/Creatinine Ratio Ur 24.7 ug/mg cr (<30)
== END 2025-04-12 09:53 | disposition home or self-care (01) ==
LOC: HO.CHCLDS 09:52
PROVIDERS: Visit Provider Internal Medicine
DX: E11.42 Type 2 diabetes mellitus with diabetic polyneuropathy (principal); Z79.4 Long term (current) use of insulin; M1A.0610 Idiopathic chronic gout, right knee, without tophus (tophi)
CPT/HCPCS: 36415; 80053; 80061; 82043; 82570; 84550; 85025

== ENCOUNTER 2025-07-01 10:27 | Outpatient (AMB) | payer MEDICAID, SELFPAY ==
--- NOTE | 2025-07-01 10:36 | MHC.OFFVIS ---
Vital Signs 07/01/25 10:43 Height 5 ft 6 in Weight 171 lb BMI 27.6 BP 132/70 Blood Pressure Location Rt brachial Position Sitting Pulse 62 Pulse Source Pulse Oximeter Pulse Oximetry (%) 100 Oxygen Delivery Method Room Air Intake Visit Reasons: GERD, postprandial abd bloating, constipation Intake Note: Est pt for mgmt of slow transit + GERD. CC; Pt denies any GI sx or concerns at this time. Pt states that his Rx therapy is working OK for him to this point. Airplane Flight Attendant Required: Yes Airplane Flight Attendant Services: Airplane Flight Attendant Offered & Declined Accompanied by: Family/Other Allergies No Known Allergies Allergy (Verified 07/01/25 10:46) Medication List - Last Reconciled 07/01/25 by Maggie Noonan, [facility]- allopurinol 300 mg PO DAILY aspirin 81 mg PO DAILY atorvastatin 10 mg PO BEDTIME blood sugar diagnostic (Prodigy No Coding strips) As directed cetirizine 10 mg PO DAILY dulaglutide (Trulicity) mg subcut insulin glargine (Lantus Solostar U-100 Insulin) 25 units subcut BEDTIME lancets (FreeStyle Lancets) As directed lorazepam 0.5 mg PO QAM losartan 12.5 mg PO DAILY metformin 500 mg PO BID pantoprazole 40 mg PO DAILY pen needle, diabetic (BD Ultra-Fine Short Pen Needle) As directed sennosides (Natural Senna Laxative) 17.2 mg (2 x 8.6 mg) PO BEDTIME HPI HPI GERD, postprandial abd bloating, constipation: Details: LAST VISIT: Constipation GERD (gastroesophageal reflux disease) Postprandial abdominal bloating Plan Continue pantoprazole daily. Avoid dietary triggers and late night snacking. Staying upright for minimum 3 hours after meals discussed with patient. Discussed with patient low FODMAP diet. List of food recommended as well as list of food to avoid given to patient. Patient will speak to his PCP about Trulicity to see if he would be able to stay off of it. Symptoms of abdominal bloating can be controlled with diet. Discussed with patient and his . Patient will return in 6 months, sooner on as needed basis. Both patient and his are agreeable to plan of care and verbalizes understanding of instructions. They were given the opportunity to ask questions and all questions answered. ? Thank you for allowing me to participate in his care TODAY'S VISIT Patient is here today for follow-up. Patient is accompanied by his . Patient reports that he has been feeling well since last visit. Patient denies dyspepsia, dysphagia or has a. Takes pantoprazole daily. Patient no longer is experiencing abdominal pain or bloating. He increased water and is exercising 2 to 3 times a week. Able to move his bowels better. Sometimes if no bowel movement for 2-3 days he will use senna. Patient denies melena, hematochezia, unintentional weight loss or ribbon like stools. Patient had colonoscopy in September of 2023, tubular adenoma found. Repeat in 5 years recommended. Patient denies any GI concerning symptoms today [facility] Medical History (Updated 07/01/25 @ 11:07 by Maggie Noonan, [facility]) GERD (gastroesophageal reflux disease) Gout Hernia Diabetes Surgical History History of bilateral inguinal hernia repair H/O colonoscopy History of eye surgery Family History Father Diabetic acetonemia Eye disease Mother Diabetic acetonemia Eye disease Sister Thyroid activity decreased Sister Thyroid cancer Social History Alcohol intake: never Patient Tobacco Use Status: Former Tobacco user Review of Systems Const Denies weight gain and Denies weight loss ENT Reports no additional complaints, Denies dysphagia and Denies odynophagia Card Reports no additional complaints Resp Reports no additional complaints GI Denies abdominal pain, Denies belching, Denies melena, Denies bloating, Denies change in bowel habits, Denies dysphagia, Denies excessive flatus, Denies dyspepsia, Denies heartburn, Denies diarrhea, Denies loose stools, Denies nausea, Denies odynophagia and Denies vomiting Reports no additional complaints Musc Reports no additional complaints Neuro Reports no additional complaints Psych Reports no additional complaints Endo Reports no additional complaints Physical Exam Vital Signs: Last Vital Signs Pulse 62 07/01/25 10:43 BP 132/70 07/01/25 10:43 Pulse Ox 100 07/01/25 10:43 Oxygen Delivery Method Room Air 07/01/25 10:43 BMI result Body Mass Index 27.6 Const Other: Legally blind General: healthy appearing, no acute distress and well developed Nutritional Appearance: well nourished Orientation/consciousness: patient oriented x3 Resp Effort & Inspection: normal respiratory effort, able to speak in complete sentences, no tracheal deviation and symmetric chest movement Auscultation: clear to auscultation bilaterally Cardio Rate: regular rate GI Inspection: Yes normal to inspection and No distended Palpation (GI): Soft to palpation, not firm, nontender and No hepatosplenomegaly present Auscultation: normal bowel sounds General: Yes no CVA tenderness Back/Spine/Pelvis Back: no CVA tenderness Skin General skin exam: elasticity normal, turgor normal and dry skin Neuro General: patient oriented x3 Psych Appearance: grossly normal Mental Status: mental status grossly normal Assessment & Plan Assessment & Plan (1) GERD (gastroesophageal reflux disease): Code(s): K21.9 - Gastro-esophageal reflux disease without esophagitis Category: Medical Qualifiers: Esophagitis presence: esophagitis presence not specified Qualified Code(s): K21.9 - Gastro-esophageal reflux disease without esophagitis (2) Constipation: Code(s): K59.00 - Constipation, unspecified Qualifiers: Constipation type: slow transit constipation Qualified Code(s): K59.01 - Slow transit constipation (3) Gastroesophageal reflux disease: Code(s): K21.9 - Gastro-esophageal reflux disease without esophagitis Qualifiers: Esophagitis presence: esophagitis presence not specified Qualified Code(s): K21.9 - Gastro-esophageal reflux disease without esophagitis (4) Postprandial abdominal bloating: Code(s): R14.0 - Abdominal distension (gaseous) Plan Patient will continue taking pantoprazole. Avoid dietary triggers and late night snacking. Staying upright for minimum 3 hours after meals discussed with patient. Patient will continue fluids and exercise. Increase fiber in his diet. Senna as needed. Patient will follow-up in the office in 6 months, sooner on as needed basis. He is agreeable to this plan and verbalizes understanding of instructions. He was given the opportunity to ask questions and all questions answered. Thank you for allowing me to participate in his care Coding Level of Care Code Est Pt Level 3 (81388) Diagnoses Gastroesophageal reflux disease, unspecified whether esophagitis present K21.9 Esophagitis presence: esophagitis presence not specified Slow transit constipation K59.01 Constipation type: slow transit constipation Postprandial abdominal bloating R14.0 Time Spent (min) 30 Comment 20 minutes spent with patient and additional 10 minutes spent reviewing his records
[2025-07-01 10:43] VITALS: BP 132/70; PULSE 62; O2SAT 100; BMI 27.6
--- OUTSIDE RECORDS SUMMARY | 2025-07-01 11:09 | XMS_ITS | Encounter Summary ---
Author Organization [employer] Address [address] [place] [address] [address] [place] [address] Care Team Providers Care Stock Counter Name Role Phone Gian Reyna MD Primary Care Prov ider Encounter Details Date Type Department Care Team (Late st Contact Info) Description 11/11/2024 Orders Only [facility] [address] [place], [place] [id number] ProviderJudah MD Social History Tobacco Use Types Packs/Day Years [...] Care Team (Late st Contact Info) Description 07/05/2025 11:30 AM EDT Telemedicine [facility] PEDS [address] [place] [address] MarquezGian Collins MD [address] [place] [address] documented as of this encounter Procedures Procedure Name Priority Date/Time Associated Diagnosis Comments RESPIRATORY VIRAL PANEL PCR Routine 03/08/2025 11:20 AM EDT [facility] DIABETES EYE EXAM Routine 10/19/2024 9:56 AM EST documented in this encounter Results * Respiratory Viral Panel PCR (03/08/2025 11:20 AM EDT) Adenovirus PCR Not Detected Not Detect. [facility] Bordetella pertussis PCR Not Detected Not Detect. [facility] Comment:Interpret results wi th caution. If B. pertussis isspecifically suspected, additional testing using analternate method is recommended. Bordetella parapertussis PCR Not Detected Not Detect. [facility] Chlamydia pneumoniae PCR Not Detected Not Detect. [facility] Coronavirus 229E PCR Not Detected Not Detect. [facility] Coronavirus HKU1 PCR Not Detected Not Detect. [facility] Coronavirus NL63 PCR Not Detected Not Detect. [facility] Coronavirus OC43 PCR Not Detected Not Detect. [facility] SARS-CoV-2 PCR Not Detected Not Detect. [facility] Comment:SARS-CoV-2 not detec stephanie by real-time RT-PCR.Note: If clinical suspicion for Sars-CoV-2 is high, continueto maintain precautions and consider repeat testing.Test results should be interpreted in the context ofclinical findings and other laboratory data.Rare polymorphisms exist that could lead to false-negativeor false-positive results. If results do not match theclinical findings, additional testing should be considered.Results reported to [facility].This test has been authorized by the FDA under the EmergencyUse Authorization (EUA) for use by authorized laboratories. Influenza A PCR Not Detected Not Detect. [facility] Influenza A Subtype H1 Not Detected Not Detect. [facility] Influenza A H1-2009 PCR Not Detected Not Detect. [facility] Influenza A Subtype H3 Not Detected Not Detect. [facility] Influenza B PCR Not Detected Not Detect. [facility] Human metapneumovirus PCR Not Detected Not Detect. [facility] Rhino/Enterovirus PCR Not Detected Not Detect. [facility] Mycoplasma pneumoniae PCR Not Detected Not Detect. [facility] Parainfluenza 1 PCR Not Detected Not Detect. [facility] Parainfluenza 2 PCR Not Detected Not Detect. [facility] Parainfluenza 3 PCR Not Detected Not Detect. [facility] Parainfluenza 4 PCR Not Detected Not Detect. [facility] RSV PCR Not Detected Not Detect. [facility] Resp Panel NA Note See Note H [facility] Comment:All results must be correlated [...] assay is performed by Multiplexed PCR, utilizing [employer] Array. 03/08/2025 11:2 0 AM EDT 03/08/2025 5:24 PM EDT us Barbara Barrett MD LAB BLOOD ORDERABLES Final Re sult [facility] [address] [place] [address] [phone] * Diabetes Eye Exam (10/19/2024 9:56 AM EST) us Historical Provider HEALTH MAINTENANCE Final Result documented in this encounter Visit Diagnoses Not on filedocumented in this encounter Additional Health Concerns Assessment Noted Time PHQ-9 Depression Total Score: 0 06/01/20 24 9:15 AM EDT documented as of this encounter Care Teams Stock Counter Relationship Specialty Start Date End Date Gian Reyna MD [address] [place] [id number] PCP - General Internal Medicine 11/16/20 documented as of this encounter
--- OUTSIDE RECORDS SUMMARY | 2025-07-01 11:09 | XMS_ITS | Encounter Summary ---
Author Organization [employer] Address [address] [place] [address] [address] [place] [address] Care Team Providers Care Lozenge Maker Helper Name Role Phone Gian Reyna MD Primary Care Prov ider Reason for Visit * Reason Comments Med Refill Encounter Details Date Type Department Care Team ([facility] st Contact Info) Description 02/20/2024 Refill [facility] MED [facility] PEDS [address] [place] [address] Gian Reyna MD [address] [place] [address] Social History Tobacco Use Types Packs/Day Years [...] Info) Description 07/05/2025 11:30 AM EDT Telemedicine [facility] MED [facility] PEDS [address] [place] [address] Gian Reyna MD [address] [place] [address] documented as of this encounter Visit Diagnoses Not on filedocumented in this encounter Additional Health Concerns Assessment Noted Time PHQ-9 Depression Total Score: 0 01/23/20 23 10:59 AM EDT documented as of this encounter Care Teams Lozenge Maker Helper Relationship Specialty Start Date End Date Gian Reyna MD [address] [place] [address] PCP - General Internal Medicine 11/16/20 documented as of this encounter
--- OUTSIDE RECORDS SUMMARY | 2025-07-01 11:09 | XMS_ITS | Clinical Summary ---
Author Organization [employer] Address [address] [place] [address] 7t [place] [address] Care Team Providers Care Portable Track Crew Chief Name Role Phone Gian Reyna MD Primary Care Prov ider Allergies Active Allergy Reactions Criticality Noted Date Comments Indomethacin 07/16/2007 caused rectal bleeding Metformin 06/01/2014 Diarrhea from 1,000 mg ok on 500 mg Medications Blood Glucose Monitoring Suppl (Studio SBVStyle Racine Lite) w/Device kit TEST BLOOD SUGAR THREE TIMES DAILY 05/27/20 22 Active clotrimazole (Lotrimin) 1 % cream APPLY TOPICALLY TO THE AFFECTED AND SURROUNDING AREAS TWICE DAILY IN THE MORNING AND IN THE EVENING 60 g 3 12/17/19 24 Active insulin glargine (Lantus SoloStar) 100 UNIT/ML pen Inject 10 Units under the skin at bedtime. ADMINISTER 25 UNITS UNDER THE SKIN AT NIGHT 15 mL 3 09/14/20 24 Active cetirizine (ZyrTEC) 10 MG tablet TAKE 1 TABLET BY MOUTH EVERY DAY 90 tablet 3 09/17/20 24 Active insulin pen needle (B-D ULTRAFINE III SHORT PEN) 31G X 8 mm misc USE DIRECTED FOR INSULIN AMINISTRATION DAILY 100 each 3 11/08/19 25 Active Prodigy No Coding Blood Gluc test strip USE DIRECTED TO TEST BLOOD GLUCOSE THREE TIMES DAILY 100 strip 3 12/08/19 25 Active FreeStyle lancets 1 each by Other route 2 times daily. TEST BLOOD SUGAR TWICE DAILY 200 each 11 12/06/19 25 Active Trulicity 4.5 MG/0.5ML solution auto-injector ADMINISTER 4.5 MG UNDER THE SKIN 1 TIME EVERY WEEK 2 mL 3 03/09/20 25 Active losartan (Cozaar) 25 MG tablet Take half a tablet orally daily 30 tablet 03/08/20 25 Active naproxen (Naprosyn) 500 MG tablet Take 1 tablet (500 mg) by mouth with breakfast and with evening meal. 60 tablet 04/11/20 25 Active atorvastatin (Lipitor) 10 MG tablet TAKE 1 TABLET(10 MG) BY MOUTH DAILY 90 tablet 06/06/20 25 Active allopurinol (Zyloprim) 300 MG tablet Take 1 tablet (300 mg) by mouth Once per day. TAKE 1 TABLET(300 MG) BY MOUTH IN THE MORNING 30 tablet 11 06/06/20 25 Active allopurinol (Zyloprim) 300 MG tablet TAKE 1 TABLET(300 MG) BY MOUTH IN THE MORNING 30 tablet 05/05/20 24 2024 Discontinued(R eorder (will not trigger notification to Pharmacy)) atorvastatin (Lipitor) 10 MG tablet TAKE 1 TABLET(10 MG) BY MOUTH DAILY 90 tablet 02/18/20 25 2024 Discontinued Active Problems Problem Noted Date [...] echocardiogram Primary hypertension 01/22/2023 Assessment & Plan (04/11/2025 10:29 AM EDT): Controlled, keep low sodium diet and exercise as tolerated, keep bp log, target <130/80 Assessment & Plan (01/05/2025 12:49 PM EST): [...] use of insulin 08/17/2014 Assessment & Plan (04/11/2025 10:31 AM EDT): Controlled, A1c 6.8%, no changes will be made, encouraged to keep low carb/no sugar diet, follow up in 3 months Assessment & Plan (01/05/2025 12:50 PM EST): [...] Encounters Date Type Department Care Team Description 06/06/2025 Telephone [facility] [address] [place] [address] Gian Reyna MD Med Refill 06/06/2025 Refill [facility] [address] [place] [address] Kimberley Andrade MD 06/06/2025 Refill [facility] [address] [place] [address] Gian Reyna MD 05/25/2025 Telephone [facility] [address] [place] [address] Gian Reyna MD Prior Auth Prescription 04/14/2025 Results Follow-Up [facility] [address] [place] [address] Gian Reyna MD POCT A1C, POCT glucose manually resulted, CBC auto differential, Additional followed-up results: 4 04/11/2025 10:30 AM EDT Office Visit [facility] [address] [place] [address] Gian Reyna MD 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); Type 2 diabetes mellitus with diabetic polyneuropathy, with long-term current use of insulin ([facility]); Primary hypertension 04/11/2025 Travel from Last 3 Months Immunizations Immunization Administration Dates Next Due Hep A / [...] Sign Reading Time Taken Comments Blood Pressure 138/76 04/11/2025 9:59 AM EDT Pulse 76 04/11/2025 9:59 AM EDT Temperature 36.4 C (97.6 F) 04/11/2025 9:59 AM EDT Respiratory Rate 18 04/11/2025 9:59 AM EDT Oxygen Saturation 98% 04/11/2025 9:59 AM EDT Inhaled Oxygen Concentration - - Weight 79.4 kg (175 lb) 04/11/2025 9:59 AM EDT Height 167.6 cm (5' 6 ) 04/11/2025 9:59 AM EDT Body Mass Index 28.25 04/11/2025 9:59 AM EDT Plan of Treatment Upcoming Encounters Date Type Department Care Team (Late st Contact Info) Description 07/05/2025 11:30 AM EDT Telemedicine [facility] MED & PEDS [address] [place], [place] [phone] Gian Reyna MD [address] [place], [place] [phone] Health Maintenance Due Date Last Done Comments CT Colonography 1963 FIT DNA/Cologuard 1963 FIT 1963 FOBT 1965 Sigmoidoscopy 1965 Disability Screening 1965 Zoster Vaccines (2 of 2) 09/04/2018 07/10/2018 Hepatitis A Vaccines (4 of 4 - Hep A Twinrix risk 4-dose series) 10/29/2018 03/23/2018, 12/01/2017, 10/29/2017 Diabetes: Foot Exam 12/17/2024 12/17/2023, 12/17/2023, 12/17/2023, Additional history exists Depression Screening 06/01/2025 06/01/2024, 06/01/20 24 SDOH Screening 06/01/2025 06/01/2024 Influenza Vaccine (#1) 2025 , 08/06/2023, 08/29/2022, Additional history exists Alcohol/Substance Use Screening 09/14/2025 09/14/2024 Diabetes: Hemoglobin A1C 10/11/2025 025, 09/14/2024, 06/17/2024, Additional history exists Tobacco Screening 03/08/2026 03/08/2025 Diabetes: Urine Protein Screening 2026 2025, 06/17/2024, 04/30/2023, Additional history exists Lipid Panel 2026 2025, 06/03, 12/17/2023, Additional history exists Eye Exam 10/19/2026 10/19/2024 Colonoscopy 09/30/2028 09/30/2023 Colorectal Cancer Screening 09/30/2028 DTaP/Tdap/Td Vaccines (5 - Td or Tdap) 05/17/2034 05/17/2024, 04/15/2014, 04/15/2014, Additional history exists Hepatitis B Vaccines Completed 03/23/2018, 12/01/2017, 10/29/2017 HIV Screening Completed 11/13/2020 Pneumococcal Vaccine: 50+ Years Completed 01/22/2023, 11/03/2002 RSV Patients and Patients Aged 60 years or older Completed 12/17/2023 COVID-19 Vaccine Completed 09/14/2024, 02/2023, 10/12/2022, Additional history exists HIB Vaccines Aged Out No longer eligi ble based on patient's age to complete this topic HPV Vaccines Aged Out No longer eligi ble based on patient's age to complete this topic IPV Vaccines Aged Out No longer eligi ble based on patient's age to complete this topic Meningococcal B Vaccine Aged Out No l onger eligible based on patient's age to complete [...] Procedure Name Priority Date/Time Associated Diagnosis Comments ALBUMIN, RANDOM URINE W/CREATININE Routine 2025 9:54 AM EDT Type 2 diabetes mellitus with diabetic polyneuropathy, with long-term current use of insulin ([facility]) URIC ACID Routine 2025 12:00 AM EDT 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 LIPID PANEL, STANDARD Routine 2025 12:00 AM EDT Type 2 diabetes mellitus with diabetic polyneuropathy, with long-term current use of insulin ([facility]) COMPREHENSIVE METABOLIC PANEL Routine 2025 12:00 AM EDT Type 2 diabetes mellitus with diabetic polyneuropathy, with long-term current use of insulin ([facility]) CBC WITH AUTO DIFFERENTIAL Routine 2025 12:00 AM EDT Type 2 diabetes mellitus with diabetic polyneuropathy, with long-term current use of insulin ([facility]) POCT GLUCOSE Routine 04/11/2025 10:01 AM EDT Type 2 diabetes mellitus with diabetic polyneuropathy, with long-term current use of insulin ([facility]) POCT GLYCATED HEMOGLOBIN, TOTAL Routine 04/11/2025 10:01 AM EDT Type 2 diabetes mellitus with diabetic polyneuropathy, with long-term current use of insulin ([facility]) DIABETES EYE EXAM Routine 10/19/2024 9:56 AM EST HM COLONOSCOPY Routine 09/30/2023 HIV 1/2 ANTIGEN/ANTIBODY, FOURTH GENERATION W/RFL Routine 11/13/2020 9:28 AM EST from Last 3 Months or Most Recently Relevant to Health Maintenance Results * Albumin, Random Urine W/Creatinine (2025 9:54 AM EDT) Creatinine, Urine 214.41 mg/dL [facility] Microalbumin Urine 53.0 mg/L [facility] Microalbum Creatinine Ratio Ur 24.7 <30 ug/mg cr [facility] Comment:Albumin/Creatinine R atio Reference Ranges: Normal: < 30 ug/mg creatinine Microalbuminuria: 30 - 300 ug/mg creatinineClinical Albuminuria: > 300 ug/mg creatinine Urine (Urine, Random) 2025 9:54 AM EDT 2025 1:59 PM EDT us Gian Maradiaga MD LAB URINE ORDERABL ES Final Result [facility] [address] [place] [address] [phone] * (ABNORMAL) CBC auto differential (2025 12:00 AM EDT) White Blood Count 4.9 4.8 - 10.8 X10*3/uL [facility] Red Blood Count 3.83(L) 4.60 - 5.80 X10*6/uL [facility] Hemoglobin 12.2(L) 14.0 - 18.0 g/dl [facility] Hematocrit 37.3(L) 42.0 - 52.0 % [facility] Mean Corpuscular Volume 97.4 80.0 - 98.0 fL [facility] Mean Corpuscular Hemoglobin 31.9 27.0 - 33.0 pg [facility] Mean Corpuscular HGB Conc 32.7 31.0 - 36.0 g/dl [facility] Red Cell Distribution Width 13.6 11.0 - 16.0 % [facility] Platelet Count 226 160 - 400 X10*3/uL [facility] Mean Platelet Volume 10.5 9.4 - 12.4 fL [facility] Neutrophils Percent Auto 50.3 45 - 73 % [facility] Imm Gran Pct Auto 0.2 0.0 - 0.4 % [facility] Lymphocytes Percent Auto 30.6 20 - 40 % [facility] Monocytes Percent Auto 10.9 2 - 11 % [facility] Eosinophils Percent Auto 6.6(H) 0 - 4 % [facility] Basophils Percent Auto 1.4 0 - 2 % [facility] NRBC Pct Auto 0.4(H) 0.0 - 0.2 /100WBC [facility] Neutrophils Absolute Auto 2.5 2.0 - 8.3 x10*3/uL [facility] Imm Gran Abs Auto 0.01 0.00 - 0.03 X10*3/uL [facility] Lymphocytes Absolute Auto 1.5 1.2 - 4.9 X10*3/uL [facility] Monocytes Absolute Auto 0.5 0.1 - 1.2 X10*3/uL [facility] Eosinophils Absolute Auto 0.3 0.0 - 0.4 X10*3/uL [facility] Basophils Absolute Auto 0.1 0.0 - 0.2 X10*3/uL [facility] NRBC Abs Auto 0.020(H) 0.0 - 0.012 X10*3/uL [facility] Blood Venous blood specimen / Unknown 2025 2025 Gian Maradiaga MD LAB BLOOD ORDERABL ES Final Result Performing Organization Address [facility]/ZIP Co de Phone Number [facility] [address] [place] [phone] * Uric acid (2025 12:00 AM EDT) Uric Acid 4.3 3.4 - 7.0 mg/dL [facility] Blood Venous blood specimen / Unknown 2025 2025 Gian Maradiaga MD LAB BLOOD ORDERABL ES Final Result Performing Organization Address [facility]/ZIP Co de Phone Number [facility] [address] [place] [address] [phone] * (ABNORMAL) Lipid Panel, Standard (2025 12:00 AM EDT) Triglycerides 51 <150 mg/dL [facility] Comment:Desirable Triglyceri de: less than 150 mg/dLBorderline High Triglyceride 150-199 mg/dLHigh Triglyceride: 200-499 mg/dLVery High Triglyceride: greater than or equal to 5OO mg/dL Cholesterol 96 <200 mg/dL [facility] Comment:Desirable Cholestero l: less than 200 mg/dLBorderline High Cholesterol: 200-239 mg/dLHigh Cholesterol: greater than 239 mg/dL LDL Cholesterol Calculated 46 <100 mg/dL [facility] Comment:Desirable LDL: less than 100 mg/dLNear Optimal/Above Optimal LDL: 110- 129 mg/dLBorderline High LDL: 130-159 mg/dLHigh LDL: 160-189 mg/dLVery High LDL: greater than or equal to 190 mg/dL HDL Cholesterol 40(L) >40 mg/dL [facility] Comment:Desirable HDL: great er than 40 mg/dL Note: This HDL assay may give artificially low results in patients with liver disease. Blood Venous blood specimen / Unknown 2025 2025 us Gian Maradiaga MD LAB BLOOD ORDERABL ES Final Result [facility] [address] [place], [place] [phone] * (ABNORMAL) Comprehensive Metabolic Panel (2025 12:00 AM EDT) Sodium 143 135 - 145 mmol/L [facility] Potassium 4.4 3.3 - 5.1 mmol/L [facility] Chloride 109(H) 96 - 108 mmol/L [facility] Carbon Dioxide 27 22 - 29 mmol/L [facility] Anion Gap 11(L) 12 - 20 [facility] Urea Nitrogen (BUN) 22(H) 9 - 16 mg/dL [facility] Creatinine, Serum 0.95 0.5 - 1.4 mg/dL [facility] Estimated Glomerular Filt Rate >60 [facility] Comment:Chronic Kidney Disea se: Estimated GFR < 60 mL/min/1.60p0[place] Kidney Disease: Estimated GFR < 15 mL/min/1.73m2 Glucose 126(H) 60 - 115 mg/dL [facility] Calcium 9.4 8.4 - 10.2 mg/dL [facility] Bilirubin, Total 0.5 0.0 - 1.0 mg/dL [facility] Aspartate Amino Transferase 26 5 - 37 U/L [facility] Alanine Aminotransferase 27 0 - 40 U/L [facility] Total Protein 6.8 6.5 - 8.0 g/dL [facility] Albumin Level 4.6 3.5 - 5.0 g/dL [facility] Alkaline Phosphatase 60 39 - 117 U/L [facility] Blood Venous blood specimen / Unknown 2025 2025 us Gian Maradiaga MD LAB BLOOD ORDERABL ES Final Result [facility] [address] [place] [phone] * (ABNORMAL) POCT A1C (04/11/2025 10:01 AM EDT) Hemoglobin A1C 6.8(A) 4.0 - 6.0 % QC Media Lot # Comment:[id number] Lot# Expiration Date Comment:11/24/2026 Blood 04/11/2025 10:0 1 AM EDT us Gian Maradiaga MD POINT OF CARE TEST ENTER/EDIT ORDERABLES Final Result * (ABNORMAL) POCT glucose manually resulted (04/11/2025 10:01 AM EDT) Glucose Blood, POC 180 60 - 200 mg/dL [employer] Media Lot # Comment:[id number] Lot# Expiration Date Comment:07/17/2025 Blood Capillary blood specimen / Unknown 04/11/2025 10:01 AM EDT Result [facility] Gian Maradiaga MD POINT OF CARE TEST ENTER/EDIT ORDERABLES Final Result * Diabetes Eye Exam (10/19/2024 9:56 AM EST) Historical Provider HEALTH MAINTENANCE Final Result * Colonoscopy (09/30/2023) Colonoscopy Normal Normal Narrative Cleopatra Burr - 09/30/2023 Colonoscopy order added Historical Provider HEALTH MAINTENANCE Final Result * HIV 1/2 ANTIGEN/ANTIBODY,FOURTH GENERATION W/RFL (11/13/2020 9:28 AM EST) HIV-1/2 ANTIGEN AND ANTIBODIES, 4TH GENERATION W/ REFLEX NON-REACT OCTAVIO NON-REACT OCTAVIO [facility] Comment: HIV-1 antigen and HIV-1/HIV-2 antibodies were not detected. There is no laboratory evidence of HIV infection. PLEASE NOTE: This information has been disclosed to you from records whose confidentiality may be protected by state law. If your state requires such protection, then the state law prohibits you from making any further disclosure of the information without the specific written consent of the person to whom it pertains, or as otherwise permitted by law. A general authorization for the release of medical or other information is NOT sufficient for this purpose. For additional information please refer to http://education.Icecreamlabs.clipsync/faq/WIL354 (This link is being provided for informational/ educational purposes only.) The performance of this assay has not been clinically validated in patients less than 2 years old. 11/13/2020 9:28 AM EST Result [facility] Gian Maradiaga MD LAB BLOOD ORDERABL ES Final Result [facility] [address] from Last 3 Months or Most Recently Relevant to Health Maintenance Insurance [facility] C3 Care Teams Portable Track Crew Chief Relationship Specialty Start Date End Date Gian Reyna MD [address] [place] [address] KARLA Teresa [address] PCP - General Internal Medicine 11/16/20
--- OUTSIDE RECORDS SUMMARY | 2025-07-01 11:09 | XMS_ITS | Encounter Summary ---
Author Organization [email or web address] Address [address] [place] [address] [facility] [place] [address] Care Team Providers Care Motion Picture Set Worker Name Role Phone Gian Reyna MD Primary Care Prov ider Reason for Visit * Reason Comments Med Refill Encounter Details Date Type Department Care Team (Late st Contact Info) Description 01/30/2023 Refill [facility] PEDS [address] [place] [address] Gian Reyna MD [address] [place] [address] Social History Tobacco Use Types Packs/Day Years [...] Info) Description 07/05/2025 11:30 AM EDT Telemedicine [facility] PEDS [address] [place] [address] Gian Reyna MD [address] [place] [address] documented as of this encounter Visit Diagnoses Not on filedocumented in this encounter Additional Health Concerns Assessment Noted Time PHQ-9 Depression Total Score: 0 01/23/20 23 10:59 AM EDT documented as of this encounter Care Teams Motion Picture Set Worker Relationship Specialty Start Date End Date Gian Reyna MD [address] [place] [address] PCP - General Internal Medicine 11/16/20 documented as of this encounter
--- OUTSIDE RECORDS SUMMARY | 2025-07-01 11:09 | XMS_ITS | Clinical Summary ---
Author Organization [facility] Address [address] [place] [address] Care Team Providers Care Retail Experience Specialist Name Role Phone Justice Rahman ANABELA Primary Care Provider [phone] Source Comments PLEASE NOTE, if this patient is a minor, it may be UNLAWFUL to discuss sensitive information that is contained in these records (such as FAMILY PLANNING, MENTAL HEALTH or SUBSTANCE ABUSE) with the minor patient's parent or other person without the patient's specific authorization.[facility] Active Problems Problem Noted Date Diagnosed Date Diabetes type 2, controlled (CMS & HHS-HCC) 08/03 Social History Tobacco Use Types Packs/Day Years [...] Plan of Treatment Not on file Insurance [facility] Member Subscriber Plan / Payer (Ef fective 2013-Present) Name:Kemar Farfan Relation to Subscriber:Self Name:Kemar Farfan Payer ID:[id number] Group ID:[id number] Type:Medicaid Address: [facility] [address] [place] [address] Care Teams Retail Experience Specialist Relationship Specialty Start Date End Date Justice Rahman [address] [place] [address] PCP - General Nutrition 08/17/14
--- OUTSIDE RECORDS SUMMARY | 2025-07-01 11:09 | XMS_ITS | Encounter Summary ---
Author Organization [employer] Address [address] [facility] 7t [place] [address] Care Team Providers Care Real Property Appraiser Name Role Phone Gian Reyna MD Primary Care Prov ider Reason for Visit * Reason Onset Date Comments Medication Question 12/25/2023 Encounter Details Date Type Department Care Team ([facility] st Contact Info) Description 12/25/2023 Telephone [facility] [address] [place] [address] Gian Reyna MD [address] [facility] [address] [place], [place] [phone] Medication Question Social History Tobacco Use Types [...] was suppose to send a script however pattern chart writer does not see anything on file documented in this encounter Plan of Treatment Upcoming Encounters Date Type Department Care Team (Late st Contact Info) Description 07/05/2025 11:30 AM EDT Telemedicine [facility] [address] [place] [address] Gian Reyna MD [address] [place] [address] documented as of this encounter Visit Diagnoses Not on filedocumented in this encounter Additional Health Concerns Assessment Noted Time PHQ-9 Depression Total Score: 0 01/23/20 23 10:59 AM EDT documented as of this encounter Care Teams Real Property Appraiser Relationship Specialty Start Date End Date Gian Reyna MD [address] [place] [address] PCP - General Internal Medicine 11/16/20 documented as of this encounter
--- OUTSIDE RECORDS SUMMARY | 2025-07-01 11:09 | XMS_ITS | Encounter Summary ---
Author Organization [employer] Address [address] [facility] 7t [place] [address] Care Team Providers Care Ekg Tech Name Role Phone Gian Reyna MD Primary Care Prov ider Reason for Visit * Reason Comments Med Refill Encounter Details Date Type Department Care Team (Late st Contact Info) Description 02/25/2025 Refill [facility]S [address] [place], [place] [phone] Kimberley Andrade MD [address] [place] [address] Social History Tobacco Use Types Packs/Day Years [...] Info) Description 07/05/2025 11:30 AM EDT Telemedicine [facility] PED[facility] [address] [place] [address] Gian Reyna MD [address] [place] [address] documented as of this encounter Visit Diagnoses Not on filedocumented in this encounter Additional Health Concerns Assessment Noted Time PHQ-9 Depression Total Score: 0 06/01/20 24 9:15 AM EDT documented as of this encounter Care Teams Ekg Tech Relationship Specialty Start Date End Date Gian Reyna MD [address] [place] [address] PCP - General Internal Medicine 11/16/20 documented as of this encounter
--- OUTSIDE RECORDS SUMMARY | 2025-07-01 11:09 | XMS_ITS | Encounter Summary ---
Author Organization [employer] Address [address] [place] [address] [address] [place] [address] Care Team Providers Care Trench Digger Name Role Phone Gian Reyna MD Primary Care Prov ider Encounter Details Date Type Department Care Team (Late st Contact Info) Description 02/03/2023 Orders Only [facility] [address] [place] [address] Gian Reyna MD [address] [place] [address] Social History Tobacco Use Types Packs/Day Years [...] Info) Description 07/05/2025 11:30 AM EDT Telemedicine [facility] [address] [place] [address] Gian Reyna MD [address] [place] [address] documented as of this encounter Visit Diagnoses Not on filedocumented in this encounter Additional Health Concerns Assessment Noted Time PHQ-9 Depression Total Score: 0 01/23/20 23 10:59 AM EDT documented as of this encounter Care Teams Trench Digger Relationship Specialty Start Date End Date Gian Reyna MD [address] [place] [address] PCP - General Internal Medicine 11/16/20 documented as of this encounter
== END 2025-07-01 11:03 | disposition home or self-care (01) ==
LOC: HO.HGI 10:27
PROVIDERS: PCP Internal Medicine; Visit Provider Nurse Practitioner Family
DX: K21.9 Gastro-esophageal reflux disease without esophagitis (principal); K59.01 Slow transit constipation; R14.0 Abdominal distension (gaseous)
CPT/HCPCS: 99213

== ENCOUNTER → 2025-07-01 10:27 | Outpatient (BNVA) | payer MEDICAID, SELFPAY | PROVIDERS: PCP Internal Medicine; Visit Provider Nurse Practitioner Family | DX: K21.9 Gastro-esophageal reflux disease without esophagitis (principal); R14.0 Abdominal distension (gaseous); K59.01 Slow transit constipation | CPT/HCPCS: 99212 ==

== ENCOUNTER 2025-10-10 09:03 | Outpatient (REF) | payer MEDICAID, SELFPAY ==
[2025-10-10 14:58] LABS: MANUAL DIFF FLAG NO
[2025-10-10 15:05] LABS: Hematocrit 39.6 % (42.0-52.0); Hemoglobin 13.1 g/dl (14.0-18.0); Imm Gran Abs Auto 0.01 X10*3/uL (0.00-0.03); Imm Gran Pct Auto 0.2 % (0.0-0.4); Lymphocytes Absolute Auto 1.5 X10*3/uL (1.2-4.9); Mean Corpuscular HGB Conc 33.1 g/dl (31.0-36.0); Mean Corpuscular Hemoglobin 31.8 pg (27.0-33.0); Mean Corpuscular Volume 96.1 fL (80.0-98.0); NRBC Abs Auto 0.000 X10*3/uL (0.0-0.012); NRBC Pct Auto 0.0 /100WBC (0.0-0.2); Platelet Count 211 X10*3/uL (160-400); Red Blood Count 4.12 X10*6/uL (4.60-5.80); White Blood Count 5.0 X10*3/uL (4.8-10.8)
[2025-10-10 15:15] LABS: Alanine Aminotransferase 33 U/L (0-40); Albumin Level 4.9 g/dL (3.5-5.0); Alkaline Phosphatase 69 U/L (39-117); Anion Gap 13 (12-20); Aspartate Amino Transferase 29 U/L (5-37); Blood Urea Nitrogen 23 mg/dL (9-16); Calcium 9.5 mg/dL (8.4-10.2); Carbon Dioxide 24 mmol/L (22-29); Chloride 107 mmol/L (96-108); Cholesterol 106 mg/dL (<200); Estimated Glomerular Filt Rate > 60; HDL Cholesterol 46 mg/dL (>40); Potassium 4.2 mmol/L (3.3-5.1); Sodium 140 mmol/L (135-145); Total Protein 7.5 g/dL (6.5-8.0); Triglycerides 45 mg/dL (<150)
== END 2025-10-10 09:04 | disposition home or self-care (01) ==
LOC: HO.CHCLDS 09:03
PROVIDERS: Visit Provider Internal Medicine
DX: E11.42 Type 2 diabetes mellitus with diabetic polyneuropathy (principal); Z79.4 Long term (current) use of insulin
CPT/HCPCS: 36415; 80053; 80061; 83036; 85025